=== PATIENT | male | born 1935 | race African-American/Black ===

== ENCOUNTER 2018-01-09 17:10 | Inpatient (IN) | payer MEDICARE, MEDICAID ==
[~2018-01-09] VITALS: Ht 188 cm; Wt 92.1 kg
[2018-01-09 17:10] VITALS: BP 131/58
[2018-01-09] MEDS ORDERED: DIPHENHYDRAMINE 12.5MG/5ML UDC PO PRN (18:15)
[2018-01-09] MEDS ORDERED: DEXTROSE 50% WATER 50ML SYRINGE IV PRN (18:15)
[2018-01-09] MEDS ORDERED: MAGNESIUM/ALUMINUM HYDROXIDE/SIMETHICONE 30ML UDC PO PRN (18:15)
[2018-01-09] MEDS ORDERED: ACETAMINOPHEN 325MG TABLET PO PRN (18:15)
[2018-01-09] MEDS ORDERED: CLONIDINE 0.1MG TABLET PO PRN (18:15)
[2018-01-09] MEDS ORDERED: ONDANSETRON HCL 4MG/2ML INJ IV PRN (18:15)
[2018-01-09] MEDS ORDERED: CHLORPROMAZINE HCL 25 MG TABLET PO PRN (18:15)
[2018-01-09] MEDS ORDERED: DIPHENHYDRAMINE 25MG CAPSULE PO PRN (18:30)
[2018-01-09 20:00] VITALS: BP 137/65
[2018-01-09] MEDS: FAMOTIDINE 20MG TABLET PO SCH (21:14)
[2018-01-09] MEDS: BLOOD SUGAR DIAGNOSTIC STRIP TEST SCH (21:14)
[2018-01-09] MEDS: INSULIN LISPRO 100 UNITS/ML SUBCUT SCH (22:35)
[2018-01-10] MEDS: MAGNESIUM HYDROXIDE 400MG/5ML 30ML UDC PO PRN (05:43)
[2018-01-10] MEDS: BLOOD SUGAR DIAGNOSTIC STRIP TEST SCH ×4 (05:45→20:27)
[2018-01-10] MEDS: INSULIN LISPRO 100 UNITS/ML SUBCUT SCH ×4 (06:45→20:27)
[2018-01-10] MEDS ORDERED: HYDROCODONE/ACETAMINOPHEN 10/325MG TABLET PO PRN (07:30)
[2018-01-10 08:00] VITALS: BP 137/72
[2018-01-10] MEDS: AMLODIPINE 2.5MG TABLET PO SCH (09:00)
[2018-01-10] MEDS: DOCUSATE SODIUM 100MG CAPSULE PO SCH ×2 (09:10→16:01)
[2018-01-10] MEDS: FERROUS SULFATE 325MG TABLET PO SCH ×3 (09:10→16:02)
[2018-01-10] MEDS: MAGNESIUM OXIDE 400MG TABLET PO SCH (09:10)
[2018-01-10] MEDS: DUTASTERIDE 0.5MG CAPSULE PO SCH (09:11)
[2018-01-10] MEDS: BENAZEPRIL 10MG TABLET PO SCH (09:11)
[2018-01-10] MEDS: ENOXAPARIN 100MG/ML SYR SUBCUT SCH (09:12)
[2018-01-10 09:21] LABS: BASOPHILS % 0.3 % (0.0-2.0); EOSINOPHILS % 1.1 % (0.0-5.0); HEMATOCRIT. 26.4 % (42.0-52.0); HEMOGLOBIN. 8.6 g/dL (14.0-18.0); LYMPHOCYTES % 8.7 % (20.0-50.0); MEAN CORPUSCULAR HEMOGLOBIN 29.6 pg (28.0-32.0); MEAN CORPUSCULAR VOLUME 90.7 fL (80.0-94.0); MEAN PLATELET VOLUME 11.8 fl (7.4-10.4); MONOCYTES % 12.3 % (2.0-8.0); NEUTROPHILS % 77.6 % (40.0-76.0); PLATELET 166 x1000/uL (130-400); RED BLOOD CELL COUNT 2.92 mill/uL (4.7-6.1); RED CELL DISTRIBUTION WIDTH 13.3 % (11.6-14.6)
[2018-01-10 09:41] LABS: CHLORIDE 105 mEq/L (98-107)
[2018-01-10] MEDS ORDERED: POTASSIUM CHLORIDE 20MEQ TABLET SR PO NR ×2 (14:45→15:00)
[2018-01-10 20:00] VITALS: BP 108/55
[2018-01-10] MEDS: FAMOTIDINE 20MG TABLET PO SCH (20:26)
[2018-01-11] MEDS: BLOOD SUGAR DIAGNOSTIC STRIP TEST SCH ×4 (05:40→20:38)
[2018-01-11] MEDS: INSULIN LISPRO 100 UNITS/ML SUBCUT SCH ×4 (06:38→20:38)
[2018-01-11 08:00] VITALS: BP 119/64
[2018-01-11] MEDS: BENAZEPRIL 10MG TABLET PO SCH (09:00)
[2018-01-11] MEDS: AMLODIPINE 2.5MG TABLET PO SCH (09:00)
[2018-01-11] MEDS: DOCUSATE SODIUM 100MG CAPSULE PO SCH ×2 (09:23→17:16)
[2018-01-11] MEDS: DUTASTERIDE 0.5MG CAPSULE PO SCH (09:23)
[2018-01-11] MEDS: FERROUS SULFATE 325MG TABLET PO SCH ×3 (09:23→17:16)
[2018-01-11] MEDS: MAGNESIUM OXIDE 400MG TABLET PO SCH (09:23)
[2018-01-11] MEDS: CELECOXIB 100MG CAPSULE PO SCH (09:23)
[2018-01-11 09:26] LABS: BASOPHILS % 0.3 % (0.0-2.0); EOSINOPHILS % 1.4 % (0.0-5.0); HEMATOCRIT. 23.6 % (42.0-52.0); HEMOGLOBIN. 7.8 g/dL (14.0-18.0); LYMPHOCYTES % 10.5 % (20.0-50.0); MEAN CORPUSCULAR HEMOGLOBIN 30.2 pg (28.0-32.0); MEAN CORPUSCULAR VOLUME 91.7 fL (80.0-94.0); MEAN PLATELET VOLUME 10.4 fl (7.4-10.4); MONOCYTES % 10.9 % (2.0-8.0); NEUTROPHILS % 76.9 % (40.0-76.0); PLATELET 157 x1000/uL (130-400); RED BLOOD CELL COUNT 2.57 mill/uL (4.7-6.1); RED CELL DISTRIBUTION WIDTH 13.3 % (11.6-14.6)
[2018-01-11] MEDS: ENOXAPARIN 100MG/ML SYR SUBCUT SCH (09:42)
[2018-01-11] MEDS ORDERED: LIDOCAINE 5% PATCH TOP SCH (09:45)
[2018-01-11] MEDS ORDERED: METHYL SALICYLATE/MENTHOL CREAM 85GM TOP SCH (11:00)
[2018-01-11] MEDS ORDERED: BACLOFEN 10MG TABLET PO SCH (14:00)
[2018-01-11 20:00] VITALS: BP 106/58
[2018-01-11] MEDS: FAMOTIDINE 20MG TABLET PO SCH (20:33)
[2018-01-12] MEDS: INSULIN LISPRO 100 UNITS/ML SUBCUT SCH ×4 (05:51→21:00)
[2018-01-12] MEDS: BLOOD SUGAR DIAGNOSTIC STRIP TEST SCH ×4 (05:51→21:00)
[2018-01-12 08:00] VITALS: BP 124/65
[2018-01-12] MEDS: AMLODIPINE 2.5MG TABLET PO SCH (09:00)
[2018-01-12] MEDS: BENAZEPRIL 10MG TABLET PO SCH (09:00)
[2018-01-12] MEDS: DUTASTERIDE 0.5MG CAPSULE PO SCH (09:01)
[2018-01-12] MEDS: CELECOXIB 100MG CAPSULE PO SCH (09:01)
[2018-01-12] MEDS: FERROUS SULFATE 325MG TABLET PO SCH ×3 (09:01→17:53)
[2018-01-12] MEDS: MAGNESIUM OXIDE 400MG TABLET PO SCH (09:01)
[2018-01-12] MEDS: DOCUSATE SODIUM 100MG CAPSULE PO SCH ×2 (09:01→17:00)
[2018-01-12] MEDS: ENOXAPARIN 100MG/ML SYR SUBCUT SCH (09:44)
[2018-01-12] MEDS: LIDOCAINE 5% PATCH TOP SCH (12:41)
[2018-01-12 20:00] VITALS: BP 115/60
[2018-01-12] MEDS: FAMOTIDINE 20MG TABLET PO SCH (22:25)
[2018-01-13] MEDS: BLOOD SUGAR DIAGNOSTIC STRIP TEST SCH ×4 (06:26→21:58)
[2018-01-13] MEDS: INSULIN LISPRO 100 UNITS/ML SUBCUT SCH ×4 (06:29→21:59)
[2018-01-13 06:49] LABS: BASOPHILS % 0.4 % (0.0-2.0); EOSINOPHILS % 0.7 % (0.0-5.0); HEMATOCRIT. 22.1 % (42.0-52.0); HEMOGLOBIN. 7.4 g/dL (14.0-18.0); LYMPHOCYTES % 15.9 % (20.0-50.0); MEAN CORPUSCULAR HEMOGLOBIN 30.3 pg (28.0-32.0); MEAN CORPUSCULAR VOLUME 90.6 fL (80.0-94.0); MEAN PLATELET VOLUME 10.4 fl (7.4-10.4); MONOCYTES % 10.4 % (2.0-8.0); NEUTROPHILS % 72.6 % (40.0-76.0); PLATELET 194 x1000/uL (130-400); RED BLOOD CELL COUNT 2.44 mill/uL (4.7-6.1); RED CELL DISTRIBUTION WIDTH 13.2 % (11.6-14.6)
[2018-01-13 07:00] LABS: PROSTRATE SPECIFIC AG TOTAL 0.31 ng/mL (0.0-4.0)
[2018-01-13 07:10] LABS: CHLORIDE 106 mEq/L (98-107)
[2018-01-13 07:19] LABS: PHOSPHORUS 1.9 mg/dL (2.5-4.9)
[2018-01-13 07:20] LABS: LDL CHOLESTEROL 91 mg/dL (5-100)
[2018-01-13 07:21] LABS: HDL CHOLESTEROL 22 mg/dL (40-59)
[2018-01-13 07:22] LABS: TOTAL IRON BINDING CAPACITY 139 ug/dL (250-450)
[2018-01-13 08:00] VITALS: BP 144/69
[2018-01-13] MEDS: HYDROCODONE/ACETAMINOPHEN 10/325MG TABLET PO PRN (09:18)
[2018-01-13] MEDS: LIDOCAINE 5% PATCH TOP SCH (09:18)
[2018-01-13] MEDS: MAGNESIUM OXIDE 400MG TABLET PO SCH (09:19)
[2018-01-13] MEDS: DOCUSATE SODIUM 100MG CAPSULE PO SCH ×2 (09:19→16:54)
[2018-01-13] MEDS: CELECOXIB 100MG CAPSULE PO SCH (09:19)
[2018-01-13] MEDS: BENAZEPRIL 10MG TABLET PO SCH (09:19)
[2018-01-13] MEDS: AMLODIPINE 2.5MG TABLET PO SCH (09:19)
[2018-01-13] MEDS: DUTASTERIDE 0.5MG CAPSULE PO SCH (09:19)
[2018-01-13] MEDS: FERROUS SULFATE 325MG TABLET PO SCH ×3 (09:19→16:54)
[2018-01-13] MEDS: ENOXAPARIN 100MG/ML SYR SUBCUT SCH (09:21)
[2018-01-13] MEDS ORDERED: METHYLPREDNISOLONE SOD SUCC 125 MG/2 ML VIAL IV NR (10:01)
[2018-01-13] MEDS ORDERED: POTASSIUM PHOS,M-BASIC-D-BASIC 20 MMOL in DEXT 5% WATER 243.3333 ML IV NR (11:00)
[2018-01-13 13:01] LABS: FOLIC ACID (FOLATE) SERUM 4.7 ng/mL (>5.38)
[2018-01-13] MEDS: LACTULOSE 20G/30ML UDC PO SCH ×2 (14:35→15:39)
[2018-01-13 20:00] VITALS: BP 132/75
[2018-01-13] MEDS: FAMOTIDINE 20MG TABLET PO SCH (21:58)
[2018-01-14] MEDS: BLOOD SUGAR DIAGNOSTIC STRIP TEST SCH ×4 (06:05→21:00)
[2018-01-14] MEDS: INSULIN LISPRO 100 UNITS/ML SUBCUT SCH ×4 (06:18→21:00)
[2018-01-14 06:53] LABS: BASOPHILS % 0.3 % (0.0-2.0); EOSINOPHILS % 0.1 % (0.0-5.0); HEMATOCRIT. 21.5 % (42.0-52.0); HEMOGLOBIN. 7.3 g/dL (14.0-18.0); LYMPHOCYTES % 9.7 % (20.0-50.0); MEAN CORPUSCULAR HEMOGLOBIN 30.6 pg (28.0-32.0); MEAN CORPUSCULAR VOLUME 90.7 fL (80.0-94.0); MEAN PLATELET VOLUME 9.3 fl (7.4-10.4); MONOCYTES % 9.1 % (2.0-8.0); NEUTROPHILS % 80.8 % (40.0-76.0); PLATELET 208 x1000/uL (130-400); RED BLOOD CELL COUNT 2.37 mill/uL (4.7-6.1); RED CELL DISTRIBUTION WIDTH 13.1 % (11.6-14.6)
[2018-01-14 08:00] VITALS: BP 135/65
[2018-01-14] MEDS: LIDOCAINE 5% PATCH TOP SCH (09:13)
[2018-01-14] MEDS: ENOXAPARIN 100MG/ML SYR SUBCUT SCH (09:17)
[2018-01-14] MEDS: CELECOXIB 100MG CAPSULE PO SCH (09:18)
[2018-01-14] MEDS: FOLIC ACID 1MG TABLET PO SCH (09:22)
[2018-01-14] MEDS: MAGNESIUM OXIDE 400MG TABLET PO SCH (09:22)
[2018-01-14] MEDS: BENAZEPRIL 10MG TABLET PO SCH (09:22)
[2018-01-14] MEDS: DUTASTERIDE 0.5MG CAPSULE PO SCH (09:22)
[2018-01-14] MEDS: FERROUS SULFATE 325MG TABLET PO SCH ×3 (09:22→17:46)
[2018-01-14] MEDS: DOCUSATE SODIUM 100MG CAPSULE PO SCH ×2 (09:22→17:46)
[2018-01-14] MEDS: AMLODIPINE 2.5MG TABLET PO SCH (09:23)
[2018-01-14] MEDS: HYDROCODONE/ACETAMINOPHEN 10/325MG TABLET PO PRN (11:02)
[2018-01-14] MEDS: TERBINAFINE HCL 1% CREAM 30GM TOP SCH (17:47)
[2018-01-14 20:00] VITALS: BP 107/61
[2018-01-14] MEDS: PANTOPRAZOLE SODIUM 40 MG/VIAL IV SCH (22:03)
[2018-01-15] VITALS (8 sets, daily range): BP systolic 116–138; BP diastolic 61–70
[2018-01-15] MEDS ORDERED: DIPHENHYDRAMINE 50MG CAPSULE PO NR (02:00)
[2018-01-15] MEDS ORDERED: ACETAMINOPHEN 500MG TABLET PO NR (02:00)
[2018-01-15] MEDS: BLOOD SUGAR DIAGNOSTIC STRIP TEST SCH ×4 (06:30→21:00)
[2018-01-15] MEDS: INSULIN LISPRO 100 UNITS/ML SUBCUT SCH ×4 (07:34→21:00)
[2018-01-15] MEDS: PANTOPRAZOLE SODIUM 40 MG/VIAL IV SCH ×2 (09:00→22:29)
[2018-01-15] MEDS: AMLODIPINE 2.5MG TABLET PO SCH (09:00)
[2018-01-15] MEDS: DOCUSATE SODIUM 100MG CAPSULE PO SCH ×2 (09:00→17:52)
[2018-01-15] MEDS: MAGNESIUM OXIDE 400MG TABLET PO SCH (09:00)
[2018-01-15] MEDS: FERROUS SULFATE 325MG TABLET PO SCH ×3 (09:00→17:52)
[2018-01-15] MEDS: DUTASTERIDE 0.5MG CAPSULE PO SCH (09:00)
[2018-01-15] MEDS: BENAZEPRIL 10MG TABLET PO SCH (09:00)
[2018-01-15] MEDS: FOLIC ACID 1MG TABLET PO SCH (09:00)
[2018-01-15] MEDS: CELECOXIB 100MG CAPSULE PO SCH (09:00)
[2018-01-15 09:55] LABS: BASOPHILS % 0.2 % (0.0-2.0); EOSINOPHILS % 0.7 % (0.0-5.0); HEMATOCRIT. 24.7 % (42.0-52.0); HEMOGLOBIN. 8.3 g/dL (14.0-18.0); LYMPHOCYTES % 17.4 % (20.0-50.0); MEAN CORPUSCULAR HEMOGLOBIN 29.9 pg (28.0-32.0); MEAN CORPUSCULAR VOLUME 89.4 fL (80.0-94.0); MEAN PLATELET VOLUME 8.5 fl (7.4-10.4); MONOCYTES % 8.5 % (2.0-8.0); NEUTROPHILS % 73.2 % (40.0-76.0); PLATELET 217 x1000/uL (130-400); RED BLOOD CELL COUNT 2.77 mill/uL (4.7-6.1); RED CELL DISTRIBUTION WIDTH 14.2 % (11.6-14.6)
[2018-01-15 10:17] LABS: CHLORIDE 106 mEq/L (98-107)
[2018-01-15] MEDS: TERBINAFINE HCL 1% CREAM 30GM TOP SCH ×2 (10:23→17:53)
[2018-01-15] MEDS: LIDOCAINE 5% PATCH TOP SCH (10:23)
[2018-01-15 11:30] LABS: PHOSPHORUS 2.4 mg/dL (2.5-4.9)
[2018-01-15] MEDS ORDERED: POTASSIUM-SODIUM PHOSPHATE POWDER PACKET PO NR (14:00)
[2018-01-15] MEDS ORDERED: PANTOPRAZOLE SODIUM 40 MG/VIAL IV SCH (21:00)
[2018-01-16] MEDS: BLOOD SUGAR DIAGNOSTIC STRIP TEST SCH ×4 (06:30→21:00)
[2018-01-16 07:00] VITALS: BP 156/72
[2018-01-16 07:23] LABS: BASOPHILS % 0.6 % (0.0-2.0); EOSINOPHILS % 0.6 % (0.0-5.0); HEMATOCRIT. 25.6 % (42.0-52.0); HEMOGLOBIN. 8.8 g/dL (14.0-18.0); LYMPHOCYTES % 12.8 % (20.0-50.0); MEAN CORPUSCULAR HEMOGLOBIN 30.2 pg (28.0-32.0); MEAN CORPUSCULAR VOLUME 88.3 fL (80.0-94.0); MEAN PLATELET VOLUME 8.9 fl (7.4-10.4); MONOCYTES % 7.3 % (2.0-8.0); NEUTROPHILS % 78.7 % (40.0-76.0); PLATELET 241 x1000/uL (130-400); RED CELL DISTRIBUTION WIDTH 13.9 % (11.6-14.6)
[2018-01-16] MEDS: INSULIN LISPRO 100 UNITS/ML SUBCUT SCH ×4 (07:45→21:00)
[2018-01-16] MEDS: AMLODIPINE 2.5MG TABLET PO SCH (08:16)
[2018-01-16] MEDS: BENAZEPRIL 10MG TABLET PO SCH (08:16)
[2018-01-16] MEDS: LIDOCAINE 5% PATCH TOP SCH (08:17)
[2018-01-16] MEDS: TERBINAFINE HCL 1% CREAM 30GM TOP SCH ×2 (10:37→17:10)
[2018-01-16 12:40] VITALS: BP 149/77
[2018-01-16] MEDS: FERROUS SULFATE 325MG TABLET PO SCH ×2 (13:00→17:10)
[2018-01-16] MEDS ORDERED: MIDAZOLAM HCL 5 MG/5 ML VIAL ONE (13:10)
[2018-01-16] MEDS ORDERED: SIMETHICONE 40 MG/0.6 ML 30ML ONE ×2 (13:10→15:11)
[2018-01-16] MEDS ORDERED: FENTANYL CITRATE/PF 50MCG/ML 2ML VIAL ONE (13:10)
[2018-01-16] MEDS ORDERED: MIDAZOLAM HCL 5 MG/5 ML VIAL IV PRN (13:24)
[2018-01-16] MEDS ORDERED: FENTANYL CITRATE/PF 50MCG/ML 2ML VIAL IV PRN (13:25)
[2018-01-16] MEDS ORDERED: BACTERIOSTATIC SODIUM CHLORIDE 0.9% 30ML VIAL IJ ONE (15:11)
[2018-01-16] MEDS: CELECOXIB 100MG CAPSULE PO SCH (16:02)
[2018-01-16] MEDS: FOLIC ACID 1MG TABLET PO SCH (16:02)
[2018-01-16] MEDS: DOCUSATE SODIUM 100MG CAPSULE PO SCH (16:02)
[2018-01-16] MEDS: DUTASTERIDE 0.5MG CAPSULE PO SCH (16:03)
[2018-01-16] MEDS: MAGNESIUM OXIDE 400MG TABLET PO SCH (16:04)
[2018-01-16 20:00] VITALS: BP 137/68
[2018-01-17] MEDS: BLOOD SUGAR DIAGNOSTIC STRIP TEST SCH ×4 (06:28→20:49)
[2018-01-17] MEDS: INSULIN LISPRO 100 UNITS/ML SUBCUT SCH ×4 (06:39→20:49)
[2018-01-17 08:00] VITALS: BP 124/67
[2018-01-17] MEDS: LIDOCAINE 5% PATCH TOP SCH (09:00)
[2018-01-17] MEDS: ENOXAPARIN 100MG/ML SYR SUBCUT SCH (09:21)
[2018-01-17] MEDS: DOCUSATE SODIUM 100MG CAPSULE PO SCH ×2 (09:22→17:01)
[2018-01-17] MEDS: MAGNESIUM OXIDE 400MG TABLET PO SCH (09:22)
[2018-01-17] MEDS: FERROUS SULFATE 325MG TABLET PO SCH ×3 (09:22→17:01)
[2018-01-17] MEDS: FOLIC ACID 1MG TABLET PO SCH (09:22)
[2018-01-17] MEDS: BENAZEPRIL 10MG TABLET PO SCH (09:22)
[2018-01-17] MEDS: CELECOXIB 100MG CAPSULE PO SCH (09:22)
[2018-01-17] MEDS: DUTASTERIDE 0.5MG CAPSULE PO SCH (09:22)
[2018-01-17] MEDS: AMLODIPINE 2.5MG TABLET PO SCH (09:22)
[2018-01-17] MEDS: TERBINAFINE HCL 1% CREAM 30GM TOP SCH ×2 (09:27→17:02)
[2018-01-17] MEDS: GUAIFENESIN 600MG ER TABLET PO SCH ×2 (11:12→20:45)
[2018-01-17 20:00] VITALS: BP 145/70
[2018-01-18] MEDS: BLOOD SUGAR DIAGNOSTIC STRIP TEST SCH ×4 (06:23→21:46)
[2018-01-18] MEDS: INSULIN LISPRO 100 UNITS/ML SUBCUT SCH ×4 (06:23→21:00)
[2018-01-18 07:10] LABS: BASOPHILS % 0.2 % (0.0-2.0); EOSINOPHILS % 0.5 % (0.0-5.0); HEMATOCRIT. 25.9 % (42.0-52.0); HEMOGLOBIN. 8.8 g/dL (14.0-18.0); LYMPHOCYTES % 9.7 % (20.0-50.0); MEAN CORPUSCULAR HEMOGLOBIN 30.3 pg (28.0-32.0); MEAN CORPUSCULAR VOLUME 89.4 fL (80.0-94.0); MEAN PLATELET VOLUME 9.2 fl (7.4-10.4); MONOCYTES % 6.5 % (2.0-8.0); NEUTROPHILS % 83.1 % (40.0-76.0); PLATELET 261 x1000/uL (130-400); RED CELL DISTRIBUTION WIDTH 14.1 % (11.6-14.6)
[2018-01-18 08:00] VITALS: BP 160/72
[2018-01-18] MEDS: LIDOCAINE 5% PATCH TOP SCH (09:00)
[2018-01-18] MEDS: DOCUSATE SODIUM 100MG CAPSULE PO SCH ×2 (09:42→16:43)
[2018-01-18] MEDS: TERBINAFINE HCL 1% CREAM 30GM TOP SCH ×2 (09:42→18:25)
[2018-01-18] MEDS: CELECOXIB 100MG CAPSULE PO SCH (09:42)
[2018-01-18] MEDS: FERROUS SULFATE 325MG TABLET PO SCH ×3 (09:42→16:43)
[2018-01-18] MEDS: MAGNESIUM OXIDE 400MG TABLET PO SCH (09:43)
[2018-01-18] MEDS: DUTASTERIDE 0.5MG CAPSULE PO SCH (09:43)
[2018-01-18] MEDS: BENAZEPRIL 10MG TABLET PO SCH (09:43)
[2018-01-18] MEDS: AMLODIPINE 2.5MG TABLET PO SCH (09:43)
[2018-01-18] MEDS: FOLIC ACID 1MG TABLET PO SCH (09:43)
[2018-01-18] MEDS: ENOXAPARIN 100MG/ML SYR SUBCUT SCH ×2 (09:43→21:50)
[2018-01-18] MEDS: GUAIFENESIN 600MG ER TABLET PO SCH ×2 (09:43→21:48)
[2018-01-18 14:18] LABS: 25-HYDROXY VITAMIN D3 13 ng/mL (.)
[2018-01-18 15:22] LABS: CLARITY URINE CLEAR (CLEAR); COLOR URINE YELLOW (YELLOW); KETONES URINE NEGATIVE (NEGATIVE); LEUKOCYTE ESTERASE URINE NEGATIVE (NEGATIVE); NITRITE URINE NEGATIVE (NEGATIVE); OCCULT BLOOD URINE NEGATIVE (NEGATIVE); PH URINE 5.5 (4.5-8.0); PROTEIN URINE 1+ (NEGATIVE); SPECIFIC GRAVITY URINE 1.017 (1.005-1.030); UROBILINOGEN URINE 0.2 E.U./dL (0.2-1.0)
[2018-01-18 20:00] VITALS: BP 122/61
[2018-01-19] MEDS: BLOOD SUGAR DIAGNOSTIC STRIP TEST SCH ×4 (06:01→21:58)
[2018-01-19] MEDS: INSULIN LISPRO 100 UNITS/ML SUBCUT SCH ×4 (06:01→21:59)
[2018-01-19 08:00] VITALS: BP 116/66
[2018-01-19] MEDS: LIDOCAINE 5% PATCH TOP SCH (09:00)
[2018-01-19] MEDS: TERBINAFINE HCL 1% CREAM 30GM TOP SCH ×2 (09:22→17:03)
[2018-01-19] MEDS: ENOXAPARIN 100MG/ML SYR SUBCUT SCH ×2 (09:22→21:57)
[2018-01-19] MEDS: FOLIC ACID 1MG TABLET PO SCH (09:23)
[2018-01-19] MEDS: MAGNESIUM OXIDE 400MG TABLET PO SCH (09:23)
[2018-01-19] MEDS: BENAZEPRIL 10MG TABLET PO SCH (09:23)
[2018-01-19] MEDS: FERROUS SULFATE 325MG TABLET PO SCH ×3 (09:23→17:03)
[2018-01-19] MEDS: GUAIFENESIN 600MG ER TABLET PO SCH ×2 (09:23→21:57)
[2018-01-19] MEDS: CELECOXIB 100MG CAPSULE PO SCH (09:23)
[2018-01-19] MEDS: DUTASTERIDE 0.5MG CAPSULE PO SCH (09:23)
[2018-01-19] MEDS: DOCUSATE SODIUM 100MG CAPSULE PO SCH ×3 (09:24→17:03)
[2018-01-19] MEDS: AMLODIPINE 2.5MG TABLET PO SCH (09:24)
[2018-01-19 10:10] LABS: BASOPHILS % 0.3 % (0.0-2.0); EOSINOPHILS % 0.8 % (0.0-5.0); HEMOGLOBIN. 8.4 g/dL (14.0-18.0); LYMPHOCYTES % 11.6 % (20.0-50.0); MEAN CORPUSCULAR HEMOGLOBIN 30.4 pg (28.0-32.0); MEAN CORPUSCULAR VOLUME 90.4 fL (80.0-94.0); MEAN PLATELET VOLUME 8.9 fl (7.4-10.4); NEUTROPHILS % 79.3 % (40.0-76.0); PLATELET 237 x1000/uL (130-400); RED BLOOD CELL COUNT 2.77 mill/uL (4.7-6.1); RED CELL DISTRIBUTION WIDTH 14.1 % (11.6-14.6)
[2018-01-19] MEDS ORDERED: ERGOCALCIFEROL 50000UNITS CAPSULE PO SCH (12:00)
[2018-01-19 20:00] VITALS: BP 120/66
[2018-01-19] MEDS: GUAIFENESIN 200MG/10ML SUGAR FREE UDC PO PRN (21:57)
[2018-01-20 03:35] VITALS: BP 114/66
[2018-01-20] MEDS: BLOOD SUGAR DIAGNOSTIC STRIP TEST SCH ×4 (05:58→21:53)
[2018-01-20] MEDS: INSULIN LISPRO 100 UNITS/ML SUBCUT SCH ×4 (05:59→21:54)
[2018-01-20] MEDS: GUAIFENESIN 200MG/10ML SUGAR FREE UDC PO PRN (06:40)
[2018-01-20 07:26] LABS: BASOPHILS % 0.4 % (0.0-2.0); EOSINOPHILS % 0.7 % (0.0-5.0); HEMATOCRIT. 24.2 % (42.0-52.0); HEMOGLOBIN. 8.4 g/dL (14.0-18.0); LYMPHOCYTES % 15.5 % (20.0-50.0); MEAN CORPUSCULAR HEMOGLOBIN 30.7 pg (28.0-32.0); MEAN CORPUSCULAR VOLUME 89.1 fL (80.0-94.0); MEAN PLATELET VOLUME 9.5 fl (7.4-10.4); MONOCYTES % 8.8 % (2.0-8.0); NEUTROPHILS % 74.6 % (40.0-76.0); PLATELET 237 x1000/uL (130-400); RED BLOOD CELL COUNT 2.72 mill/uL (4.7-6.1); RED CELL DISTRIBUTION WIDTH 14.2 % (11.6-14.6)
[2018-01-20 08:00] VITALS: BP 128/70
[2018-01-20] MEDS: FERROUS SULFATE 325MG TABLET PO SCH ×3 (09:35→16:58)
[2018-01-20] MEDS: AMLODIPINE 2.5MG TABLET PO SCH (09:35)
[2018-01-20] MEDS: MAGNESIUM OXIDE 400MG TABLET PO SCH (09:35)
[2018-01-20] MEDS: BENAZEPRIL 10MG TABLET PO SCH (09:35)
[2018-01-20] MEDS: DUTASTERIDE 0.5MG CAPSULE PO SCH (09:35)
[2018-01-20] MEDS: CELECOXIB 100MG CAPSULE PO SCH (09:36)
[2018-01-20] MEDS: FOLIC ACID 1MG TABLET PO SCH (09:36)
[2018-01-20] MEDS: GUAIFENESIN 600MG ER TABLET PO SCH ×2 (09:36→21:53)
[2018-01-20] MEDS: LIDOCAINE 5% PATCH TOP SCH (09:37)
[2018-01-20] MEDS: GUAIFENESIN-DM 200MG-20MG/10ML UDC PO PRN (11:05)
[2018-01-20] MEDS: DOCUSATE SODIUM 100MG CAPSULE PO SCH ×2 (11:44→16:58)
[2018-01-20] MEDS: TERBINAFINE HCL 1% CREAM 30GM TOP SCH ×2 (11:45→16:57)
[2018-01-20] MEDS: ENOXAPARIN 100MG/ML SYR SUBCUT SCH ×2 (11:45→21:54)
[2018-01-20 19:36] VITALS: BP 122/67
[2018-01-21] MEDS: GUAIFENESIN-DM 200MG-20MG/10ML UDC PO PRN (04:07)
[2018-01-21] MEDS: INSULIN LISPRO 100 UNITS/ML SUBCUT SCH ×2 (06:39→11:56)
[2018-01-21] MEDS: BLOOD SUGAR DIAGNOSTIC STRIP TEST SCH ×2 (06:39→11:55)
[2018-01-21] MEDS: GUAIFENESIN 600MG ER TABLET PO SCH (08:40)
[2018-01-21] MEDS: BENAZEPRIL 10MG TABLET PO SCH (08:40)
[2018-01-21] MEDS: FOLIC ACID 1MG TABLET PO SCH (08:40)
[2018-01-21] MEDS: DOCUSATE SODIUM 100MG CAPSULE PO SCH (08:40)
[2018-01-21] MEDS: CELECOXIB 100MG CAPSULE PO SCH (08:40)
[2018-01-21] MEDS: MAGNESIUM OXIDE 400MG TABLET PO SCH (08:40)
[2018-01-21] MEDS: DUTASTERIDE 0.5MG CAPSULE PO SCH (08:40)
[2018-01-21] MEDS: FERROUS SULFATE 325MG TABLET PO SCH ×2 (08:40→12:20)
[2018-01-21] MEDS: AMLODIPINE 2.5MG TABLET PO SCH (08:40)
[2018-01-21] MEDS: MAGNESIUM HYDROXIDE 400MG/5ML 30ML UDC PO PRN (08:41)
[2018-01-21] MEDS: LIDOCAINE 5% PATCH TOP SCH (08:41)
[2018-01-21] MEDS: ENOXAPARIN 100MG/ML SYR SUBCUT SCH (08:41)
[2018-01-21] MEDS: TERBINAFINE HCL 1% CREAM 30GM TOP SCH (08:46)
[2018-01-21] MEDS ORDERED: MORPHINE SULFATE 4 MG/ML CPJ (NOT FOR IM USE) IV SCH (11:45)
[2018-01-21] MEDS: NITROGLYCERIN 0.4MG TABLET SL SL SCH ×2 (11:54→12:11)
[2018-01-21 16:13] LABS: BASOPHILS % 0.3 % (0.0-2.0); EOSINOPHILS % 0.7 % (0.0-5.0); HEMATOCRIT. 22.4 % (42.0-52.0); HEMOGLOBIN. 7.5 g/dL (14.0-18.0); LYMPHOCYTES % 13.2 % (20.0-50.0); MEAN CORPUSCULAR HEMOGLOBIN 30.3 pg (28.0-32.0); MEAN CORPUSCULAR VOLUME 90.1 fL (80.0-94.0); MEAN PLATELET VOLUME 8.3 fl (7.4-10.4); NEUTROPHILS % 75.8 % (40.0-76.0); PLATELET 210 x1000/uL (130-400); RED BLOOD CELL COUNT 2.49 mill/uL (4.7-6.1); RED CELL DISTRIBUTION WIDTH 13.9 % (11.6-14.6)
[2018-01-21 16:14] VITALS: BP 130/70
[2018-01-21] MEDS ORDERED: BUPIVACAINE HCL 0.5% (5MG/ML) 50ML IR ONE (16:30)
[2018-01-21] MEDS ORDERED: TRIAMCINOLONE ACETONIDE 40MG/ML 1ML VIAL IM NR (17:00)
[2018-01-21] MEDS ORDERED: LIDOCAINE HCL/PF 2% 20 MG/ML 10ML VIAL IJ NR (17:00)
[2018-01-21] MEDS ORDERED: BUPIVACAINE HCL/PF 0.5% (5MG/ML) 10ML INFIL ONE (17:15)
[2018-01-21] MEDS ORDERED: DEXAMETHASONE 4MG/ML 1ML VIAL IV NR (17:30)
[2018-01-21] MEDS ORDERED: BUPIVACAINE HCL 0.5% (5MG/ML) 50ML INFIL NR (18:00)
[2018-01-21] MEDS ORDERED: BUPIVACAINE HCL/PF 0.5% (5MG/ML) 10ML INFIL NR (18:02)
== END 2018-01-21 17:17 | disposition short-term general hospital (02) | DRG 535 ==
PROVIDERS: ADMIT Physical Medicine & Rehabilitation Spinal Cord Injury Medicine; ATTEND Internal Medicine
PROC: 30233N1 Transfusion of Nonautologous Red Blood Cells into Peripheral Vein, Percutaneous Approach (ICD-10-PCS; principal; 2018-01-15)
PROC: 0DB98ZX Excision of Duodenum, Via Natural or Artificial Opening Endoscopic, Diagnostic (ICD-10-PCS; 2018-01-16)
DX: S72.011A Unspecified intracapsular fracture of right femur, initial encounter for closed fracture (principal); I26.99 Other pulmonary embolism without acute cor pulmonale; I82.411 Acute embolism and thrombosis of right femoral vein; N17.9 Acute kidney failure, unspecified; N39.0 Urinary tract infection, site not specified; W18.39XA Other fall on same level, initial encounter; E11.22 Type 2 diabetes mellitus with diabetic chronic kidney disease; D69.6 Thrombocytopenia, unspecified; D72.829 Elevated white blood cell count, unspecified; E78.00 Pure hypercholesterolemia, unspecified; E78.5 Hyperlipidemia, unspecified; E87.6 Hypokalemia; M19.90 Unspecified osteoarthritis, unspecified site; Z96.641 Presence of right artificial hip joint; I13.10 Hypertensive heart and chronic kidney disease without heart failure, with stage 1 through stage 4 chronic kidney disease, or unspecified chronic kidney disease; D63.8 Anemia in other chronic diseases classified elsewhere; M79.672 Pain in left foot; E11.51 Type 2 diabetes mellitus with diabetic peripheral angiopathy without gangrene; L60.3 Nail dystrophy; N18.3 Chronic kidney disease, stage 3 (moderate); E55.9 Vitamin D deficiency, unspecified; L89.629 Pressure ulcer of left heel, unspecified stage; R50.9 Fever, unspecified; R26.9 Unspecified abnormalities of gait and mobility; D52.9 Folate deficiency anemia, unspecified; R53.81 Other malaise; R07.9 Chest pain, unspecified; F32.9 Major depressive disorder, single episode, unspecified; Z96.651 Presence of right artificial knee joint; R91.1 Solitary pulmonary nodule; Z85.46 Personal history of malignant neoplasm of prostate; Z86.73 Personal history of transient ischemic attack (TIA), and cerebral infarction without residual deficits; Y93.89 Activity, other specified; Y92.89 Other specified places as the place of occurrence of the external cause; Y99.8 Other external cause status; Z79.899 Other long term (current) drug therapy; Z79.4 Long term (current) use of insulin; Z91.81 History of falling
CPT/HCPCS: 36415; 71045; 71046; 71250; 73600; 73620; 80048; 80053; 80061; 81003; 82270; 82306; 82378; 82607; 82728; 82746; 82962; 83036; 83540; 83550; 83605; 83735; 84100; 84134; 84145; 84153; 84443; 84484; 84630; 85025; 85379; 86850; 86900; 86920; 87040; 87086; 88305; 92523; 93005; 93923; 93970; 97110; 97112; 97116; 97162; 97166; 97530; 97535; C9113; G0515; J1100; J1650; J1815; J2250; J2270; J2930; J3010; J3301; J3490; J7050; J7060; P9016; Q0163; G0103

== ENCOUNTER 2018-01-21 17:40 | Inpatient (IN) | payer MEDICARE, MEDICAID ==
[~2018-01-21] VITALS: Ht 188 cm; Wt 80.7 kg
[2018-01-21 20:00] VITALS: BP 136/71
[2018-01-21] MEDS ORDERED: HYDROCODONE/ACETAMINOPHEN 5/325MG TABLET PO PRN (22:15)
[2018-01-21] MEDS ORDERED: MAGNESIUM HYDROXIDE 400MG/5ML 30ML UDC PO PRN (22:30)
[2018-01-21] MEDS ORDERED: CLONIDINE 0.1MG TABLET PO PRN (22:30)
[2018-01-21] MEDS ORDERED: MAGNESIUM/ALUMINUM HYDROXIDE/SIMETHICONE 30ML UDC PO PRN (22:30)
[2018-01-21] MEDS ORDERED: ONDANSETRON HCL 4MG/2ML INJ IV PRN (22:30)
[2018-01-21] MEDS ORDERED: DIPHENHYDRAMINE 50MG/ML VIAL IV PRN (22:30)
[2018-01-21] MEDS ORDERED: CHLORPROMAZINE HCL 25 MG TABLET PO PRN (22:45)
[2018-01-21] MEDS: GUAIFENESIN 200MG/10ML SUGAR FREE UDC PO PRN (23:17)
[2018-01-21] MEDS: ENOXAPARIN 100MG/ML SYR SUBCUT SCH (23:18)
[2018-01-22] VITALS: BP 125/60
[2018-01-22 04:00] VITALS: BP 104/57
[2018-01-22 07:39] LABS: BASOPHILS % 0.3 % (0.0-2.0); EOSINOPHILS % 0.3 % (0.0-5.0); HEMOGLOBIN. 7.2 g/dL (14.0-18.0); LYMPHOCYTES % 12.8 % (20.0-50.0); MEAN CORPUSCULAR HEMOGLOBIN 29.9 pg (28.0-32.0); MEAN CORPUSCULAR VOLUME 91.1 fL (80.0-94.0); MEAN PLATELET VOLUME 9.4 fl (7.4-10.4); MONOCYTES % 10.5 % (2.0-8.0); NEUTROPHILS % 76.1 % (40.0-76.0); PLATELET 221 x1000/uL (130-400); RED BLOOD CELL COUNT 2.42 mill/uL (4.7-6.1); RED CELL DISTRIBUTION WIDTH 14.2 % (11.6-14.6)
[2018-01-22] MEDS: FERROUS SULFATE 325MG TABLET PO SCH ×3 (07:58→18:01)
[2018-01-22 08:00] VITALS: BP 112/61
[2018-01-22 08:05] LABS: CHLORIDE 104 mEq/L (98-107)
[2018-01-22] MEDS ORDERED: PANTOPRAZOLE SODIUM 40 MG/VIAL IV SCH (09:00)
[2018-01-22] MEDS: DUTASTERIDE 0.5MG CAPSULE PO SCH (09:23)
[2018-01-22] MEDS: CELECOXIB 200MG CAPSULE PO SCH (09:24)
[2018-01-22] MEDS: GUAIFENESIN 600MG ER TABLET PO SCH ×2 (09:24→21:47)
[2018-01-22] MEDS: MAGNESIUM OXIDE 400MG TABLET PO SCH (09:25)
[2018-01-22] MEDS: FOLIC ACID 1MG TABLET PO SCH (09:26)
[2018-01-22] MEDS: AMLODIPINE 2.5MG TABLET PO SCH (09:26)
[2018-01-22] MEDS: DOCUSATE SODIUM 100MG CAPSULE PO SCH ×2 (09:26→18:00)
[2018-01-22] MEDS: BENAZEPRIL 10MG TABLET PO SCH (09:27)
[2018-01-22] MEDS: ENOXAPARIN 100MG/ML SYR SUBCUT SCH (09:30)
[2018-01-22] MEDS: TERBINAFINE HCL 1% CREAM 30GM TOP SCH ×2 (09:37→18:01)
[2018-01-22] MEDS: LIDOCAINE 5% PATCH TOP SCH (09:39)
[2018-01-22 12:00] VITALS: BP 97/55
[2018-01-22] MEDS: GUAIFENESIN 200MG/10ML SUGAR FREE UDC PO PRN (12:24)
[2018-01-22 13:14] LABS: BG BASE EXCESS -5.5 mmol/L (-2.0-2.0); BG CARBOXYHEMOGLOBIN 0.4 % (0.5-1.5); BG DEOXYHEMOGLOBIN 5.9 % (0.0-5.0); BG FRACTION INSPIRED OXYGEN 28; BG HCO3 ACT 18.3 mmol/L (22.0-26.0); BG METHEMOGLOBIN 0.2 % (0.0-1.5); BG OXYGEN SATURATION 94.1 % (92.0-98.5); BG OXYHEMOGLOBIN 93.5 % (94.0-97.0); BG PH 7.419 (7.350-7.450); BG SAMPLE SITE RIGHT RADIAL; BG TOTAL HEMOGLOBIN 6.9 g/dL (12.0-18.0); BG VENT MODE NASAL CANNULA
[2018-01-22 16:00] VITALS: BP 96/45
[2018-01-22] MEDS ORDERED: LORAZEPAM 0.5MG TABLET PO PRN (16:45)
[2018-01-22 20:00] VITALS: BP 98/55
[2018-01-22] MEDS: ZOLPIDEM TARTRATE 5MG TABLET PO PRN (21:47)
[2018-01-23] VITALS (14 sets, daily range): BP systolic 74–112; BP diastolic 40–56
[2018-01-23] MEDS: AMLODIPINE 2.5MG TABLET PO SCH (09:00)
[2018-01-23] MEDS ORDERED: ENOXAPARIN 100MG/ML SYR SUBCUT SCH (09:00)
[2018-01-23] MEDS: BENAZEPRIL 10MG TABLET PO SCH (09:00)
[2018-01-23] MEDS ORDERED: ENOXAPARIN 30MG/0.3ML SYR SUBCUT SCH (09:00)
[2018-01-23] MEDS: DOCUSATE SODIUM 100MG CAPSULE PO SCH ×2 (10:17→17:55)
[2018-01-23] MEDS: FERROUS SULFATE 325MG TABLET PO SCH ×3 (10:17→17:56)
[2018-01-23] MEDS: CELECOXIB 200MG CAPSULE PO SCH (10:17)
[2018-01-23] MEDS: DUTASTERIDE 0.5MG CAPSULE PO SCH (10:17)
[2018-01-23] MEDS: GUAIFENESIN 600MG ER TABLET PO SCH (10:17)
[2018-01-23] MEDS: MAGNESIUM OXIDE 400MG TABLET PO SCH (10:17)
[2018-01-23] MEDS: FOLIC ACID 1MG TABLET PO SCH (10:17)
[2018-01-23] MEDS: LIDOCAINE 5% PATCH TOP SCH (10:19)
[2018-01-23] MEDS: TERBINAFINE HCL 1% CREAM 30GM TOP SCH ×2 (10:25→17:57)
[2018-01-23] MEDS ORDERED: SODIUM CHLORIDE 0.9% 500 ML IV SCH (13:00)
[2018-01-23] MEDS: PANTOPRAZOLE SODIUM 40 MG/VIAL IV SCH (20:38)
[2018-01-23] MEDS ORDERED: DEXTROSE 50% WATER 50ML SYRINGE IV PRN (21:45)
[2018-01-24] VITALS (30 sets, daily range): BP systolic 93–155; BP diastolic 50–89
[2018-01-24] MEDS: BLOOD SUGAR DIAGNOSTIC STRIP TEST SCH ×4 (05:57→20:48)
[2018-01-24] MEDS: PANTOPRAZOLE SODIUM 40 MG/VIAL IV SCH ×2 (05:59→17:00)
[2018-01-24 06:49] LABS: BASOPHILS % 0.2 % (0.0-2.0); EOSINOPHILS % 0.2 % (0.0-5.0); LYMPHOCYTES % 9.7 % (20.0-50.0); MEAN CORPUSCULAR HEMOGLOBIN 30.5 pg (28.0-32.0); MEAN CORPUSCULAR VOLUME 87.4 fL (80.0-94.0); MEAN PLATELET VOLUME 9.1 fl (7.4-10.4); MONOCYTES % 11.9 % (2.0-8.0); PLATELET 184 x1000/uL (130-400); RED BLOOD CELL COUNT 2.31 mill/uL (4.7-6.1)
[2018-01-24 07:09] LABS: INR 1.1; PARTIAL THROMBOPLASTIN TIME 27.7 sec (23.4-31.0); PROTHROMBIN TIME 10.7 sec (9.1-11.1)
[2018-01-24] MEDS: FERROUS SULFATE 325MG TABLET PO SCH ×3 (07:20→16:52)
[2018-01-24] MEDS: INSULIN LISPRO 100 UNITS/ML SUBCUT SCH ×4 (07:20→20:48)
[2018-01-24 07:47] LABS: HEMATOCRIT. 20.2 % (42.0-52.0)
[2018-01-24] MEDS: DUTASTERIDE 0.5MG CAPSULE PO SCH (08:05)
[2018-01-24] MEDS: FOLIC ACID 1MG TABLET PO SCH (08:06)
[2018-01-24] MEDS: MAGNESIUM OXIDE 400MG TABLET PO SCH (08:06)
[2018-01-24] MEDS: SODIUM CHLORIDE 0.9% 1,000 ML IV SCH (08:28)
[2018-01-24] MEDS: LIDOCAINE 5% PATCH TOP SCH (09:00)
[2018-01-24] MEDS: TERBINAFINE HCL 1% CREAM 30GM TOP SCH ×2 (09:15→16:53)
[2018-01-24] MEDS ORDERED: MIDAZOLAM HCL 5 MG/5 ML VIAL ONE (12:05)
[2018-01-24] MEDS ORDERED: FENTANYL CITRATE/PF 50MCG/ML 2ML VIAL ONE (12:06)
[2018-01-24] MEDS ORDERED: SIMETHICONE 40 MG/0.6 ML 30ML ONE (12:22)
[2018-01-24] MEDS ORDERED: MIDAZOLAM HCL 5 MG/5 ML VIAL IV PRN (12:53)
[2018-01-24] MEDS ORDERED: FENTANYL CITRATE/PF 50MCG/ML 2ML VIAL IV PRN (12:54)
[2018-01-24] MEDS ORDERED: SODIUM CHLORIDE 0.9% 10ML VIAL ONE (15:19)
[2018-01-24] MEDS: SUCRALFATE 1 G/10 ML UDC PO SCH ×2 (16:52→20:48)
[2018-01-24 19:15] LABS: HEMATOCRIT 26.5 % (42.0-52.0); HEMOGLOBIN 9.1 g/dL (14.0-18.0)
[2018-01-24] MEDS: ZOLPIDEM TARTRATE 5MG TABLET PO PRN (20:49)
[2018-01-25] VITALS (12 sets, daily range): BP systolic 132–169; BP diastolic 75–98
[2018-01-25] MEDS: SODIUM CHLORIDE 0.9% 1,000 ML IV SCH ×2 (04:49→23:30)
[2018-01-25] MEDS: SUCRALFATE 1 G/10 ML UDC PO SCH ×4 (06:21→21:05)
[2018-01-25] MEDS: BLOOD SUGAR DIAGNOSTIC STRIP TEST SCH ×4 (06:22→20:37)
[2018-01-25] MEDS: PANTOPRAZOLE SODIUM 40 MG/VIAL IV SCH ×2 (06:22→17:24)
[2018-01-25] MEDS: INSULIN LISPRO 100 UNITS/ML SUBCUT SCH ×4 (07:13→21:06)
[2018-01-25] MEDS: LIDOCAINE 5% PATCH TOP SCH (08:49)
[2018-01-25] MEDS: MAGNESIUM OXIDE 400MG TABLET PO SCH (08:56)
[2018-01-25] MEDS: FOLIC ACID 1MG TABLET PO SCH (08:56)
[2018-01-25] MEDS: GUAIFENESIN 200MG/10ML SUGAR FREE UDC PO PRN ×3 (08:56→23:46)
[2018-01-25] MEDS: DUTASTERIDE 0.5MG CAPSULE PO SCH (08:56)
[2018-01-25] MEDS: FERROUS SULFATE 325MG TABLET PO SCH ×3 (08:56→17:24)
[2018-01-25] MEDS: TERBINAFINE HCL 1% CREAM 30GM TOP SCH ×2 (09:00→17:30)
[2018-01-25] MEDS ORDERED: SODIUM BICARBONATE 4% (2.4MEQ) 5ML VIAL IV ONE (09:22)
[2018-01-25 09:55] LABS: HEMOGLOBIN 9.6 g/dL (14.0-18.0); MEAN CORPUSCULAR HEMOGLOBIN 29.9 pg (28.0-32.0); MEAN CORPUSCULAR VOLUME 87.4 fL (80.0-94.0); PLATELET 199 x1000/uL (130-400); RED CELL DISTRIBUTION WIDTH 14.8 % (11.6-14.6)
[2018-01-25] MEDS ORDERED: LIDOCAINE HCL 1% 10 MG/ML 10ML VIAL ONE (10:11)
[2018-01-26] VITALS (12 sets, daily range): BP systolic 143–174; BP diastolic 77–97
[2018-01-26] MEDS: PANTOPRAZOLE SODIUM 40 MG/VIAL IV SCH ×2 (05:29→16:42)
[2018-01-26] MEDS: BLOOD SUGAR DIAGNOSTIC STRIP TEST SCH ×4 (06:00→20:40)
[2018-01-26] MEDS: SUCRALFATE 1 G/10 ML UDC PO SCH ×4 (06:00→20:40)
[2018-01-26 06:15] LABS: BASOPHILS % 0.2 % (0.0-2.0); EOSINOPHILS % 0.7 % (0.0-5.0); HEMATOCRIT. 25.2 % (42.0-52.0); HEMOGLOBIN. 8.8 g/dL (14.0-18.0); LYMPHOCYTES % 9.2 % (20.0-50.0); MEAN CORPUSCULAR HEMOGLOBIN 30.5 pg (28.0-32.0); MEAN CORPUSCULAR VOLUME 87.2 fL (80.0-94.0); MEAN PLATELET VOLUME 8.1 fl (7.4-10.4); MONOCYTES % 10.7 % (2.0-8.0); NEUTROPHILS % 79.2 % (40.0-76.0); PLATELET 182 x1000/uL (130-400); RED BLOOD CELL COUNT 2.89 mill/uL (4.7-6.1); RED CELL DISTRIBUTION WIDTH 14.8 % (11.6-14.6)
[2018-01-26] MEDS: INSULIN LISPRO 100 UNITS/ML SUBCUT SCH ×4 (07:20→20:41)
[2018-01-26] MEDS ORDERED: ERGOCALCIFEROL 50000UNITS CAPSULE PO SCH (09:00)
[2018-01-26] MEDS: LIDOCAINE 5% PATCH TOP SCH (09:00)
[2018-01-26] MEDS: TERBINAFINE HCL 1% CREAM 30GM TOP SCH ×2 (09:00→16:42)
[2018-01-26] MEDS: MAGNESIUM OXIDE 400MG TABLET PO SCH (09:20)
[2018-01-26] MEDS: FERROUS SULFATE 325MG TABLET PO SCH ×3 (09:20→16:42)
[2018-01-26] MEDS: DUTASTERIDE 0.5MG CAPSULE PO SCH (09:20)
[2018-01-26] MEDS: FOLIC ACID 1MG TABLET PO SCH (09:20)
[2018-01-26] MEDS ORDERED: CLONIDINE 0.1MG TABLET PO PRN (14:15)
[2018-01-26] MEDS: AMLODIPINE 2.5MG TABLET PO SCH (15:16)
[2018-01-26] MEDS: BENAZEPRIL 10MG TABLET PO SCH (15:58)
[2018-01-26] MEDS: GUAIFENESIN 200MG/10ML SUGAR FREE UDC PO PRN (20:40)
[2018-01-27] VITALS (11 sets, daily range): BP systolic 136–166; BP diastolic 77–97
[2018-01-27] MEDS: ZOLPIDEM TARTRATE 5MG TABLET PO PRN ×2 (00:10→23:14)
[2018-01-27] MEDS: SUCRALFATE 1 G/10 ML UDC PO SCH ×4 (06:17→20:37)
[2018-01-27] MEDS: PANTOPRAZOLE SODIUM 40 MG/VIAL IV SCH ×2 (06:17→17:09)
[2018-01-27] MEDS: FERROUS SULFATE 325MG TABLET PO SCH ×3 (06:17→17:09)
[2018-01-27] MEDS: BLOOD SUGAR DIAGNOSTIC STRIP TEST SCH ×4 (06:38→20:40)
[2018-01-27] MEDS: INSULIN LISPRO 100 UNITS/ML SUBCUT SCH ×4 (07:20→20:40)
[2018-01-27] MEDS: MAGNESIUM OXIDE 400MG TABLET PO SCH (08:24)
[2018-01-27] MEDS: DUTASTERIDE 0.5MG CAPSULE PO SCH (08:24)
[2018-01-27] MEDS: FOLIC ACID 1MG TABLET PO SCH (08:24)
[2018-01-27] MEDS: BENAZEPRIL 10MG TABLET PO SCH (08:25)
[2018-01-27] MEDS: AMLODIPINE 2.5MG TABLET PO SCH (08:25)
[2018-01-27] MEDS: TERBINAFINE HCL 1% CREAM 30GM TOP SCH ×2 (08:25→17:00)
[2018-01-27] MEDS: LIDOCAINE 5% PATCH TOP SCH (08:25)
[2018-01-27] MEDS: ACETAMINOPHEN 325MG TABLET PO PRN (12:00)
[2018-01-27] MEDS ORDERED: SODIUM BICARBONATE 4% (2.4MEQ) 5ML VIAL IV ONE (14:00)
[2018-01-27] MEDS: GUAIFENESIN 200MG/10ML SUGAR FREE UDC PO PRN ×2 (17:09→23:14)
[2018-01-28] VITALS (11 sets, daily range): BP systolic 131–164; BP diastolic 68–94
[2018-01-28] MEDS: INSULIN LISPRO 100 UNITS/ML SUBCUT SCH ×4 (06:18→20:29)
[2018-01-28] MEDS: BLOOD SUGAR DIAGNOSTIC STRIP TEST SCH ×4 (06:18→20:28)
[2018-01-28] MEDS: PANTOPRAZOLE SODIUM 40 MG/VIAL IV SCH ×2 (06:18→18:12)
[2018-01-28] MEDS: SUCRALFATE 1 G/10 ML UDC PO SCH ×4 (06:18→20:26)
[2018-01-28] MEDS: FERROUS SULFATE 325MG TABLET PO SCH ×3 (06:18→18:10)
[2018-01-28] MEDS: GUAIFENESIN 200MG/10ML SUGAR FREE UDC PO PRN (06:18)
[2018-01-28] MEDS: FOLIC ACID 1MG TABLET PO SCH (08:37)
[2018-01-28] MEDS: DUTASTERIDE 0.5MG CAPSULE PO SCH (08:37)
[2018-01-28] MEDS: MAGNESIUM OXIDE 400MG TABLET PO SCH (08:37)
[2018-01-28] MEDS: AMLODIPINE 2.5MG TABLET PO SCH (08:38)
[2018-01-28] MEDS: BENAZEPRIL 10MG TABLET PO SCH (08:38)
[2018-01-28] MEDS: LIDOCAINE 5% PATCH TOP SCH (08:39)
[2018-01-28] MEDS: TERBINAFINE HCL 1% CREAM 30GM TOP SCH ×2 (08:39→18:12)
[2018-01-28 11:05] LABS: BASOPHILS % 0.4 % (0.0-2.0); EOSINOPHILS % 0.7 % (0.0-5.0); HEMATOCRIT. 29.9 % (42.0-52.0); MEAN CORPUSCULAR HEMOGLOBIN 29.6 pg (28.0-32.0); MEAN CORPUSCULAR VOLUME 88.1 fL (80.0-94.0); MEAN PLATELET VOLUME 8.3 fl (7.4-10.4); MONOCYTES % 7.6 % (2.0-8.0); NEUTROPHILS % 80.3 % (40.0-76.0); PLATELET 207 x1000/uL (130-400); RED BLOOD CELL COUNT 3.39 mill/uL (4.7-6.1); RED CELL DISTRIBUTION WIDTH 14.4 % (11.6-14.6)
[2018-01-28] MEDS: ACETAMINOPHEN 325MG TABLET PO PRN (15:10)
[2018-01-28] MEDS: ZOLPIDEM TARTRATE 5MG TABLET PO PRN (20:25)
[2018-01-29] VITALS (7 sets, daily range): BP systolic 127–168; BP diastolic 65–80
[2018-01-29] MEDS: PANTOPRAZOLE SODIUM 40 MG/VIAL IV SCH ×2 (05:21→17:16)
[2018-01-29 06:56] LABS: BASOPHILS % 0.2 % (0.0-2.0); EOSINOPHILS % 0.9 % (0.0-5.0); HEMATOCRIT. 25.7 % (42.0-52.0); HEMOGLOBIN. 8.7 g/dL (14.0-18.0); LYMPHOCYTES % 10.7 % (20.0-50.0); MEAN CORPUSCULAR HEMOGLOBIN 29.9 pg (28.0-32.0); MEAN CORPUSCULAR VOLUME 88.3 fL (80.0-94.0); MONOCYTES % 8.5 % (2.0-8.0); NEUTROPHILS % 79.7 % (40.0-76.0); PLATELET 185 x1000/uL (130-400); RED BLOOD CELL COUNT 2.91 mill/uL (4.7-6.1); RED CELL DISTRIBUTION WIDTH 14.3 % (11.6-14.6)
[2018-01-29] MEDS: INSULIN LISPRO 100 UNITS/ML SUBCUT SCH ×4 (08:10→20:25)
[2018-01-29] MEDS: BLOOD SUGAR DIAGNOSTIC STRIP TEST SCH ×4 (08:32→20:25)
[2018-01-29] MEDS: MAGNESIUM OXIDE 400MG TABLET PO SCH (09:19)
[2018-01-29] MEDS: FOLIC ACID 1MG TABLET PO SCH (09:19)
[2018-01-29] MEDS: FERROUS SULFATE 325MG TABLET PO SCH ×3 (09:19→17:16)
[2018-01-29] MEDS: DUTASTERIDE 0.5MG CAPSULE PO SCH (09:19)
[2018-01-29] MEDS: SUCRALFATE 1 G/10 ML UDC PO SCH ×4 (09:19→20:21)
[2018-01-29] MEDS: AMLODIPINE 2.5MG TABLET PO SCH (09:20)
[2018-01-29] MEDS: LIDOCAINE 5% PATCH TOP SCH (09:20)
[2018-01-29] MEDS: TERBINAFINE HCL 1% CREAM 30GM TOP SCH ×2 (09:21→17:17)
[2018-01-29] MEDS: BENAZEPRIL 10MG TABLET PO SCH (09:24)
[2018-01-29] MEDS ORDERED: POTASSIUM CHLORIDE 20MEQ TABLET SR PO NR (12:30)
[2018-01-29] MEDS: GUAIFENESIN 200MG/10ML SUGAR FREE UDC PO PRN (12:50)
[2018-01-29] MEDS: ZOLPIDEM TARTRATE 5MG TABLET PO PRN (20:21)
[2018-01-29] MEDS: ACETAMINOPHEN 325MG TABLET PO PRN (20:25)
[2018-01-30 04:00] VITALS: BP 137/71
[2018-01-30 07:28] LABS: BASOPHILS % 0.2 % (0.0-2.0); EOSINOPHILS % 0.8 % (0.0-5.0); HEMOGLOBIN. 8.9 g/dL (14.0-18.0); LYMPHOCYTES % 9.5 % (20.0-50.0); MEAN CORPUSCULAR HEMOGLOBIN 30.2 pg (28.0-32.0); MEAN CORPUSCULAR VOLUME 88.6 fL (80.0-94.0); MEAN PLATELET VOLUME 9.1 fl (7.4-10.4); MONOCYTES % 9.4 % (2.0-8.0); NEUTROPHILS % 80.1 % (40.0-76.0); PLATELET 191 x1000/uL (130-400); RED BLOOD CELL COUNT 2.94 mill/uL (4.7-6.1); RED CELL DISTRIBUTION WIDTH 14.4 % (11.6-14.6)
[2018-01-30] MEDS: BLOOD SUGAR DIAGNOSTIC STRIP TEST SCH ×4 (07:57→20:50)
[2018-01-30] MEDS: INSULIN LISPRO 100 UNITS/ML SUBCUT SCH ×4 (07:57→20:53)
[2018-01-30 08:00] VITALS: BP 151/70
[2018-01-30] MEDS: DUTASTERIDE 0.5MG CAPSULE PO SCH (09:01)
[2018-01-30] MEDS: BENAZEPRIL 10MG TABLET PO SCH (09:01)
[2018-01-30] MEDS: SUCRALFATE 1 G/10 ML UDC PO SCH ×4 (09:01→20:47)
[2018-01-30] MEDS: FERROUS SULFATE 325MG TABLET PO SCH ×3 (09:01→16:58)
[2018-01-30] MEDS: PANTOPRAZOLE 40MG DR TABLET PO SCH ×2 (09:01→16:58)
[2018-01-30] MEDS: MAGNESIUM OXIDE 400MG TABLET PO SCH (09:02)
[2018-01-30] MEDS: TERBINAFINE HCL 1% CREAM 30GM TOP SCH ×2 (09:02→17:00)
[2018-01-30] MEDS: FOLIC ACID 1MG TABLET PO SCH (09:02)
[2018-01-30] MEDS: AMLODIPINE 2.5MG TABLET PO SCH (09:02)
[2018-01-30] MEDS: LIDOCAINE 5% PATCH TOP SCH (09:06)
[2018-01-30 12:00] VITALS: BP 136/73
[2018-01-30 16:00] VITALS: BP 119/63
[2018-01-30] MEDS ORDERED: LOPERAMIDE 2 MG/10 ML UDC PO NR (16:23)
[2018-01-30 20:00] VITALS: BP 117/62
[2018-01-30] MEDS: ZOLPIDEM TARTRATE 5MG TABLET PO PRN (23:01)
[2018-01-31] VITALS: BP 120/64
[2018-01-31 04:00] VITALS: BP 120/68
[2018-01-31 06:39] LABS: BASOPHILS % 0.5 % (0.0-2.0); HEMATOCRIT. 24.6 % (42.0-52.0); HEMOGLOBIN. 8.4 g/dL (14.0-18.0); LYMPHOCYTES % 11.4 % (20.0-50.0); MEAN CORPUSCULAR VOLUME 87.8 fL (80.0-94.0); MEAN PLATELET VOLUME 9.2 fl (7.4-10.4); MONOCYTES % 9.4 % (2.0-8.0); NEUTROPHILS % 77.7 % (40.0-76.0); PLATELET 199 x1000/uL (130-400); RED CELL DISTRIBUTION WIDTH 14.2 % (11.6-14.6)
[2018-01-31] MEDS: BLOOD SUGAR DIAGNOSTIC STRIP TEST SCH ×2 (07:43→12:10)
[2018-01-31] MEDS: INSULIN LISPRO 100 UNITS/ML SUBCUT SCH ×2 (07:45→12:10)
[2018-01-31] MEDS: SUCRALFATE 1 G/10 ML UDC PO SCH ×2 (08:20→12:09)
[2018-01-31] MEDS: AMLODIPINE 2.5MG TABLET PO SCH (08:21)
[2018-01-31] MEDS: MAGNESIUM OXIDE 400MG TABLET PO SCH (08:21)
[2018-01-31] MEDS: FOLIC ACID 1MG TABLET PO SCH (08:21)
[2018-01-31] MEDS: FERROUS SULFATE 325MG TABLET PO SCH ×2 (08:21→12:10)
[2018-01-31] MEDS: PANTOPRAZOLE 40MG DR TABLET PO SCH (08:21)
[2018-01-31] MEDS: TERBINAFINE HCL 1% CREAM 30GM TOP SCH (09:33)
[2018-01-31] MEDS: LIDOCAINE 5% PATCH TOP SCH (09:33)
[2018-01-31] MEDS: BENAZEPRIL 10MG TABLET PO SCH (09:35)
[2018-01-31] MEDS: DUTASTERIDE 0.5MG CAPSULE PO SCH (09:35)
[2018-01-31] MEDS ORDERED: POTASSIUM CHLORIDE 20MEQ TABLET SR PO NR (13:00)
[2018-01-31 14:57] VITALS: BP 126/85
== END 2018-01-31 16:22 | DRG 180 ==
LOC: 5WST 17:40 → 3WST 01-23 21:20 → 7WST 01-28 13:35
PROVIDERS: ADMIT Internal Medicine; ATTEND Internal Medicine
PROC: 30233N1 Transfusion of Nonautologous Red Blood Cells into Peripheral Vein, Percutaneous Approach (ICD-10-PCS; 2018-01-23)
PROC: 0DB58ZX Excision of Esophagus, Via Natural or Artificial Opening Endoscopic, Diagnostic (ICD-10-PCS; 2018-01-24)
PROC: 0DB68ZX Excision of Stomach, Via Natural or Artificial Opening Endoscopic, Diagnostic (ICD-10-PCS; 2018-01-24)
PROC: 0W9B3ZZ Drainage of Left Pleural Cavity, Percutaneous Approach (ICD-10-PCS; principal; 2018-01-25)
PROC: 0W9B3ZZ Drainage of Left Pleural Cavity, Percutaneous Approach (ICD-10-PCS; 2018-01-27)
DX: C34.90 Malignant neoplasm of unspecified part of unspecified bronchus or lung (principal); K29.71 Gastritis, unspecified, with bleeding; K22.11 Ulcer of esophagus with bleeding; J90 Pleural effusion, not elsewhere classified; D62 Acute posthemorrhagic anemia; D68.59 Other primary thrombophilia; R04.2 Hemoptysis; N17.9 Acute kidney failure, unspecified; I12.9 Hypertensive chronic kidney disease with stage 1 through stage 4 chronic kidney disease, or unspecified chronic kidney disease; N18.3 Chronic kidney disease, stage 3 (moderate); I95.9 Hypotension, unspecified; K44.9 Diaphragmatic hernia without obstruction or gangrene; E11.51 Type 2 diabetes mellitus with diabetic peripheral angiopathy without gangrene; E55.9 Vitamin D deficiency, unspecified; E78.00 Pure hypercholesterolemia, unspecified; E78.5 Hyperlipidemia, unspecified; E87.6 Hypokalemia; I25.10 Atherosclerotic heart disease of native coronary artery without angina pectoris; F51.04 Psychophysiologic insomnia; J44.9 Chronic obstructive pulmonary disease, unspecified; M19.90 Unspecified osteoarthritis, unspecified site; Z96.641 Presence of right artificial hip joint; E11.22 Type 2 diabetes mellitus with diabetic chronic kidney disease; E27.8 Other specified disorders of adrenal gland; N28.89 Other specified disorders of kidney and ureter; L89.620 Pressure ulcer of left heel, unstageable; D72.829 Elevated white blood cell count, unspecified; L60.3 Nail dystrophy; R15.9 Full incontinence of feces; N28.1 Cyst of kidney, acquired; K31.7 Polyp of stomach and duodenum; Z96.643 Presence of artificial hip joint, bilateral; Z86.73 Personal history of transient ischemic attack (TIA), and cerebral infarction without residual deficits; Z86.711 Personal history of pulmonary embolism; Z86.718 Personal history of other venous thrombosis and embolism; Z85.46 Personal history of malignant neoplasm of prostate; Z98.49 Cataract extraction status, unspecified eye; Z79.899 Other long term (current) drug therapy; Z87.891 Personal history of nicotine dependence; Z79.01 Long term (current) use of anticoagulants; Z79.4 Long term (current) use of insulin
CPT/HCPCS: 32555; 36415; 36600; 71045; 71250; 78306; 80048; 82270; 82375; 82805; 82945; 82962; 83615; 84157; 84484; 85014; 85018; 85025; 85027; 85610; 85730; 86301; 86850; 86900; 86920; 87070; 87102; 87116; 87205; 88108; 88305; 88312; 88313; 89050; 93005; 97116; 97163; 97166; 97530; A4216; A9503; C1893; C9113; J1650; J1815; J2250; J3010; J3490; J7030; J7040; J7050; P9016

== ENCOUNTER 2018-01-31 16:27 | Inpatient (IN) | payer MEDICARE, MEDICAID ==
[~2018-01-31] VITALS: Ht 188 cm; Wt 80.8 kg
[2018-01-31 16:47] VITALS: BP 151/64
[2018-01-31] MEDS ORDERED: MAGNESIUM HYDROXIDE 400MG/5ML 30ML UDC PO PRN (17:00)
[2018-01-31] MEDS ORDERED: CLONIDINE 0.1MG TABLET PO PRN (17:00)
[2018-01-31] MEDS ORDERED: ONDANSETRON HCL 4MG TABLET PO PRN (17:00)
[2018-01-31] MEDS ORDERED: DIPHENHYDRAMINE 25MG CAPSULE PO PRN (17:00)
[2018-01-31] MEDS ORDERED: DEXTROSE 50% WATER 50ML SYRINGE IV PRN ×2 (17:00→17:30)
[2018-01-31] MEDS ORDERED: GUAIFENESIN 200MG/10ML SUGAR FREE UDC PO PRN (17:00)
[2018-01-31 18:30] VITALS: BP 151/64
[2018-01-31 20:00] VITALS: BP 135/60
[2018-01-31] MEDS: FERROUS SULFATE 325MG TABLET PO SCH (20:14)
[2018-01-31] MEDS: INSULIN LISPRO 100 UNITS/ML SUBCUT SCH (20:15)
[2018-01-31] MEDS: SUCRALFATE 1 G/10 ML UDC PO SCH (20:15)
[2018-01-31] MEDS: PANTOPRAZOLE 40MG DR TABLET PO SCH (20:15)
[2018-01-31] MEDS: BLOOD SUGAR DIAGNOSTIC STRIP TEST SCH (20:15)
[2018-01-31] MEDS: ZOLPIDEM TARTRATE 5MG TABLET PO PRN (20:55)
[2018-01-31] MEDS: TERBINAFINE HCL 1% CREAM 30GM TOP SCH (20:56)
[2018-02-01] MEDS: SUCRALFATE 1 G/10 ML UDC PO SCH ×4 (06:31→20:47)
[2018-02-01] MEDS: BLOOD SUGAR DIAGNOSTIC STRIP TEST SCH ×4 (06:31→20:48)
[2018-02-01] MEDS: INSULIN LISPRO 100 UNITS/ML SUBCUT SCH ×4 (06:32→20:48)
[2018-02-01 08:00] VITALS: BP 123/65
[2018-02-01] MEDS: TERBINAFINE HCL 1% CREAM 30GM TOP SCH ×2 (09:33→17:31)
[2018-02-01] MEDS: LIDOCAINE 5% PATCH TOP SCH (09:34)
[2018-02-01] MEDS: FERROUS SULFATE 325MG TABLET PO SCH ×3 (09:34→17:30)
[2018-02-01] MEDS: BENAZEPRIL 10MG TABLET PO SCH (09:34)
[2018-02-01] MEDS: DUTASTERIDE 0.5MG CAPSULE PO SCH (09:34)
[2018-02-01] MEDS: AMLODIPINE 2.5MG TABLET PO SCH (09:35)
[2018-02-01] MEDS: PANTOPRAZOLE 40MG DR TABLET PO SCH ×2 (09:35→20:47)
[2018-02-01] MEDS: FOLIC ACID 1MG TABLET PO SCH (09:35)
[2018-02-01] MEDS: CYANOCOBALAMIN/FA/PYRIDOXINE TABLET PO SCH (10:57)
[2018-02-01 11:35] LABS: CHLORIDE 108 mEq/L (98-107)
[2018-02-01 11:37] LABS: BASOPHILS % 0.3 % (0.0-2.0); EOSINOPHILS % 0.9 % (0.0-5.0); HEMATOCRIT. 27.5 % (42.0-52.0); HEMOGLOBIN. 9.2 g/dL (14.0-18.0); LYMPHOCYTES % 8.2 % (20.0-50.0); MEAN CORPUSCULAR HEMOGLOBIN 29.4 pg (28.0-32.0); MEAN PLATELET VOLUME 8.8 fl (7.4-10.4); MONOCYTES % 7.7 % (2.0-8.0); NEUTROPHILS % 82.9 % (40.0-76.0); PLATELET 238 x1000/uL (130-400); RED BLOOD CELL COUNT 3.13 mill/uL (4.7-6.1); RED CELL DISTRIBUTION WIDTH 14.3 % (11.6-14.6)
[2018-02-01] MEDS: MAGNESIUM OXIDE 400MG TABLET PO SCH (13:51)
[2018-02-01] MEDS: ZOLPIDEM TARTRATE 5MG TABLET PO PRN (20:47)
[2018-02-01 21:37] VITALS: BP 121/54
[2018-02-02] MEDS: BLOOD SUGAR DIAGNOSTIC STRIP TEST SCH ×4 (05:35→21:13)
[2018-02-02] MEDS: INSULIN LISPRO 100 UNITS/ML SUBCUT SCH ×4 (05:35→21:32)
[2018-02-02] MEDS: SUCRALFATE 1 G/10 ML UDC PO SCH ×4 (05:35→21:11)
[2018-02-02 08:00] VITALS: BP 114/63
[2018-02-02] MEDS: MAGNESIUM OXIDE 400MG TABLET PO SCH (10:12)
[2018-02-02] MEDS: CYANOCOBALAMIN/FA/PYRIDOXINE TABLET PO SCH (10:12)
[2018-02-02] MEDS: FERROUS SULFATE 325MG TABLET PO SCH ×3 (10:12→17:16)
[2018-02-02] MEDS: TERBINAFINE HCL 1% CREAM 30GM TOP SCH ×2 (10:12→17:15)
[2018-02-02] MEDS: FOLIC ACID 1MG TABLET PO SCH (10:12)
[2018-02-02] MEDS: DUTASTERIDE 0.5MG CAPSULE PO SCH (10:12)
[2018-02-02] MEDS: ERGOCALCIFEROL 50000UNITS CAPSULE PO SCH (10:13)
[2018-02-02] MEDS: AMLODIPINE 2.5MG TABLET PO SCH (10:13)
[2018-02-02] MEDS: LIDOCAINE 5% PATCH TOP SCH (10:14)
[2018-02-02] MEDS: BENAZEPRIL 10MG TABLET PO SCH (10:14)
[2018-02-02 20:00] VITALS: BP 114/62
[2018-02-02] MEDS: ZOLPIDEM TARTRATE 5MG TABLET PO PRN (21:29)
[2018-02-03] MEDS: SUCRALFATE 1 G/10 ML UDC PO SCH ×4 (05:51→20:50)
[2018-02-03] MEDS: BLOOD SUGAR DIAGNOSTIC STRIP TEST SCH ×4 (05:53→20:49)
[2018-02-03] MEDS: INSULIN LISPRO 100 UNITS/ML SUBCUT SCH ×4 (06:30→20:50)
[2018-02-03 07:00] VITALS: BP 125/62
[2018-02-03 07:20] LABS: BASOPHILS % 0.3 % (0.0-2.0); EOSINOPHILS % 0.4 % (0.0-5.0); HEMATOCRIT. 25.3 % (42.0-52.0); HEMOGLOBIN. 8.7 g/dL (14.0-18.0); LYMPHOCYTES % 13.3 % (20.0-50.0); MEAN CORPUSCULAR HEMOGLOBIN 29.8 pg (28.0-32.0); MEAN CORPUSCULAR VOLUME 87.1 fL (80.0-94.0); MEAN PLATELET VOLUME 9.3 fl (7.4-10.4); PLATELET 233 x1000/uL (130-400); RED BLOOD CELL COUNT 2.91 mill/uL (4.7-6.1)
[2018-02-03 07:40] LABS: CHLORIDE 106 mEq/L (98-107)
[2018-02-03] MEDS: DUTASTERIDE 0.5MG CAPSULE PO SCH (08:52)
[2018-02-03] MEDS: CYANOCOBALAMIN/FA/PYRIDOXINE TABLET PO SCH (08:52)
[2018-02-03] MEDS: MAGNESIUM OXIDE 400MG TABLET PO SCH (08:53)
[2018-02-03] MEDS: FOLIC ACID 1MG TABLET PO SCH (08:53)
[2018-02-03] MEDS: BENAZEPRIL 10MG TABLET PO SCH (08:53)
[2018-02-03] MEDS: AMLODIPINE 2.5MG TABLET PO SCH (08:53)
[2018-02-03] MEDS: TERBINAFINE HCL 1% CREAM 30GM TOP SCH ×2 (08:55→17:50)
[2018-02-03] MEDS: FERROUS SULFATE 325MG TABLET PO SCH ×3 (08:55→16:37)
[2018-02-03] MEDS: LIDOCAINE 5% PATCH TOP SCH (08:56)
[2018-02-03] MEDS ORDERED: CYANOCOBALAMIN 1000MCG TABLET PO SCH (09:00)
[2018-02-03] MEDS: ACETAMINOPHEN 325MG TABLET PO PRN (12:55)
[2018-02-03 20:00] VITALS: BP 128/66
[2018-02-03] MEDS: ZOLPIDEM TARTRATE 5MG TABLET PO PRN (20:50)
[2018-02-04] MEDS: SUCRALFATE 1 G/10 ML UDC PO SCH ×4 (07:03→20:46)
[2018-02-04] MEDS: INSULIN LISPRO 100 UNITS/ML SUBCUT SCH ×4 (07:03→20:44)
[2018-02-04] MEDS: BLOOD SUGAR DIAGNOSTIC STRIP TEST SCH ×4 (07:03→20:44)
[2018-02-04 07:27] LABS: BASOPHILS % 0.3 % (0.0-2.0); EOSINOPHILS % 0.6 % (0.0-5.0); HEMATOCRIT. 23.7 % (42.0-52.0); HEMOGLOBIN. 8.1 g/dL (14.0-18.0); LYMPHOCYTES % 12.7 % (20.0-50.0); MEAN CORPUSCULAR HEMOGLOBIN 29.8 pg (28.0-32.0); MEAN CORPUSCULAR VOLUME 87.3 fL (80.0-94.0); MEAN PLATELET VOLUME 9.3 fl (7.4-10.4); NEUTROPHILS % 77.4 % (40.0-76.0); PLATELET 230 x1000/uL (130-400); RED BLOOD CELL COUNT 2.72 mill/uL (4.7-6.1); RED CELL DISTRIBUTION WIDTH 14.2 % (11.6-14.6)
[2018-02-04] MEDS: ACETAMINOPHEN 325MG TABLET PO PRN (07:51)
[2018-02-04 07:52] LABS: CHLORIDE 106 mEq/L (98-107)
[2018-02-04 08:00] VITALS: BP 113/52
[2018-02-04 08:01] LABS: PHOSPHORUS 3.3 mg/dL (2.5-4.9)
[2018-02-04 09:10] VITALS: BP 116/53
[2018-02-04] MEDS: MAGNESIUM OXIDE 400MG TABLET PO SCH (09:15)
[2018-02-04] MEDS: FOLIC ACID 1MG TABLET PO SCH (09:15)
[2018-02-04] MEDS: DUTASTERIDE 0.5MG CAPSULE PO SCH (09:15)
[2018-02-04] MEDS: CYANOCOBALAMIN/FA/PYRIDOXINE TABLET PO SCH (09:15)
[2018-02-04] MEDS: FERROUS SULFATE 325MG TABLET PO SCH ×3 (09:16→16:49)
[2018-02-04] MEDS: BENAZEPRIL 10MG TABLET PO SCH (09:16)
[2018-02-04] MEDS: AMLODIPINE 2.5MG TABLET PO SCH (09:16)
[2018-02-04] MEDS: LIDOCAINE 5% PATCH TOP SCH (09:17)
[2018-02-04] MEDS: TERBINAFINE HCL 1% CREAM 30GM TOP SCH ×2 (10:14→16:57)
[2018-02-04 20:00] VITALS: BP 121/60
[2018-02-04] MEDS: ZOLPIDEM TARTRATE 5MG TABLET PO PRN (20:46)
[2018-02-05] MEDS ORDERED: ZOLPIDEM TARTRATE 5MG TABLET PO PRN (03:30)
[2018-02-05] MEDS: BLOOD SUGAR DIAGNOSTIC STRIP TEST SCH ×4 (06:45→21:00)
[2018-02-05] MEDS: SUCRALFATE 1 G/10 ML UDC PO SCH ×4 (06:45→22:58)
[2018-02-05 06:50] VITALS: BP 107/51
[2018-02-05 06:51] VITALS: BP 110/55
[2018-02-05 06:52] VITALS: BP 113/45
[2018-02-05 08:00] VITALS: BP 123/45
[2018-02-05] MEDS: BENAZEPRIL 10MG TABLET PO SCH (09:00)
[2018-02-05] MEDS: INSULIN LISPRO 100 UNITS/ML SUBCUT SCH ×4 (09:00→21:00)
[2018-02-05] MEDS: AMLODIPINE 2.5MG TABLET PO SCH (09:00)
[2018-02-05] MEDS: LIDOCAINE 5% PATCH TOP SCH (09:19)
[2018-02-05] MEDS: FOLIC ACID 1MG TABLET PO SCH (09:19)
[2018-02-05] MEDS: FERROUS SULFATE 325MG TABLET PO SCH ×3 (09:20→17:43)
[2018-02-05] MEDS: DUTASTERIDE 0.5MG CAPSULE PO SCH (09:20)
[2018-02-05] MEDS: CYANOCOBALAMIN/FA/PYRIDOXINE TABLET PO SCH (09:20)
[2018-02-05] MEDS: MAGNESIUM/ALUMINUM HYDROXIDE/SIMETHICONE 30ML UDC PO PRN ×2 (09:20→09:22)
[2018-02-05] MEDS: TRAMADOL 50MG TABLET PO PRN ×2 (09:22→14:21)
[2018-02-05] MEDS: MAGNESIUM OXIDE 400MG TABLET PO SCH (10:47)
[2018-02-05] MEDS: TERBINAFINE HCL 1% CREAM 30GM TOP SCH ×2 (12:48→17:46)
[2018-02-05 20:00] VITALS: BP_SYST 101; BP_SYST 111; BP_SYST 113; BP_DIAS 52; BP_DIAS 54; BP_DIAS 57
[2018-02-06] MEDS: ZOLPIDEM TARTRATE 5MG TABLET PO PRN ×2 (01:44→23:53)
[2018-02-06] MEDS: BLOOD SUGAR DIAGNOSTIC STRIP TEST SCH ×4 (06:30→21:32)
[2018-02-06 07:27] LABS: BASOPHILS % 0.5 % (0.0-2.0); EOSINOPHILS % 1.1 % (0.0-5.0); HEMOGLOBIN. 7.5 g/dL (14.0-18.0); LYMPHOCYTES % 16.2 % (20.0-50.0); MEAN CORPUSCULAR HEMOGLOBIN 29.8 pg (28.0-32.0); MEAN PLATELET VOLUME 8.9 fl (7.4-10.4); MONOCYTES % 11.5 % (2.0-8.0); NEUTROPHILS % 70.7 % (40.0-76.0); PLATELET 219 x1000/uL (130-400); RED BLOOD CELL COUNT 2.51 mill/uL (4.7-6.1); RED CELL DISTRIBUTION WIDTH 14.7 % (11.6-14.6)
[2018-02-06] MEDS: SUCRALFATE 1 G/10 ML UDC PO SCH ×4 (07:30→20:55)
[2018-02-06] MEDS: TRAMADOL 50MG TABLET PO PRN (07:34)
[2018-02-06 08:11] VITALS: BP 105/57
[2018-02-06] MEDS: BENAZEPRIL 10MG TABLET PO SCH (09:00)
[2018-02-06] MEDS: INSULIN LISPRO 100 UNITS/ML SUBCUT SCH ×4 (09:00→21:00)
[2018-02-06] MEDS: AMLODIPINE 2.5MG TABLET PO SCH (09:00)
[2018-02-06] MEDS: CYANOCOBALAMIN/FA/PYRIDOXINE TABLET PO SCH (09:36)
[2018-02-06] MEDS: FERROUS SULFATE 325MG TABLET PO SCH ×3 (09:36→17:15)
[2018-02-06] MEDS: DUTASTERIDE 0.5MG CAPSULE PO SCH (09:36)
[2018-02-06] MEDS: FOLIC ACID 1MG TABLET PO SCH (09:36)
[2018-02-06] MEDS: MAGNESIUM OXIDE 400MG TABLET PO SCH (09:36)
[2018-02-06] MEDS: TERBINAFINE HCL 1% CREAM 30GM TOP SCH ×2 (09:37→17:15)
[2018-02-06] MEDS: LIDOCAINE 5% PATCH TOP SCH (09:39)
[2018-02-06 20:00] VITALS: BP_SYST 106; BP_SYST 111; BP_SYST 118; BP_DIAS 54; BP_DIAS 58; BP_DIAS 59
[2018-02-06 22:46] VITALS: BP 92/48
[2018-02-06 23:00] VITALS: BP 105/47
[2018-02-07] VITALS: BP 113/54
[2018-02-07 01:00] VITALS: BP 116/54
[2018-02-07 01:37] VITALS: BP 105/54
[2018-02-07] MEDS: SUCRALFATE 1 G/10 ML UDC PO SCH ×4 (05:47→21:20)
[2018-02-07] MEDS: BLOOD SUGAR DIAGNOSTIC STRIP TEST SCH ×4 (05:49→21:40)
[2018-02-07] MEDS: INSULIN LISPRO 100 UNITS/ML SUBCUT SCH ×4 (06:14→21:00)
[2018-02-07 06:43] LABS: BASOPHILS % 0.3 % (0.0-2.0); EOSINOPHILS % 1.1 % (0.0-5.0); HEMATOCRIT. 25.3 % (42.0-52.0); HEMOGLOBIN. 8.7 g/dL (14.0-18.0); LYMPHOCYTES % 15.4 % (20.0-50.0); MEAN CORPUSCULAR HEMOGLOBIN 29.9 pg (28.0-32.0); MEAN CORPUSCULAR VOLUME 86.6 fL (80.0-94.0); MEAN PLATELET VOLUME 8.9 fl (7.4-10.4); MONOCYTES % 11.1 % (2.0-8.0); NEUTROPHILS % 72.1 % (40.0-76.0); PLATELET 234 x1000/uL (130-400); RED BLOOD CELL COUNT 2.92 mill/uL (4.7-6.1); RED CELL DISTRIBUTION WIDTH 14.3 % (11.6-14.6)
[2018-02-07] MEDS: TRAMADOL 50MG TABLET PO PRN (06:59)
[2018-02-07 07:54] VITALS: BP 110/49
[2018-02-07] MEDS: FOLIC ACID 1MG TABLET PO SCH (08:20)
[2018-02-07] MEDS: FERROUS SULFATE 325MG TABLET PO SCH ×3 (08:20→17:42)
[2018-02-07] MEDS: TERBINAFINE HCL 1% CREAM 30GM TOP SCH ×2 (08:20→18:42)
[2018-02-07] MEDS: AMLODIPINE 2.5MG TABLET PO SCH (08:20)
[2018-02-07] MEDS: DUTASTERIDE 0.5MG CAPSULE PO SCH (08:20)
[2018-02-07] MEDS: CYANOCOBALAMIN/FA/PYRIDOXINE TABLET PO SCH (08:20)
[2018-02-07] MEDS: MAGNESIUM OXIDE 400MG TABLET PO SCH (08:20)
[2018-02-07] MEDS: BENAZEPRIL 10MG TABLET PO SCH (08:21)
[2018-02-07] MEDS: LIDOCAINE 5% PATCH TOP SCH (08:22)
[2018-02-07 20:00] VITALS: BP 115/58
[2018-02-07] MEDS: ZOLPIDEM TARTRATE 5MG TABLET PO PRN (21:40)
[2018-02-08] MEDS: BLOOD SUGAR DIAGNOSTIC STRIP TEST SCH ×4 (06:28→21:45)
[2018-02-08] MEDS: SUCRALFATE 1 G/10 ML UDC PO SCH ×4 (06:28→21:44)
[2018-02-08] MEDS: INSULIN LISPRO 100 UNITS/ML SUBCUT SCH ×4 (06:31→21:00)
[2018-02-08 08:19] VITALS: BP 128/61
[2018-02-08] MEDS: TERBINAFINE HCL 1% CREAM 30GM TOP SCH ×2 (09:00→17:00)
[2018-02-08] MEDS: BENAZEPRIL 10MG TABLET PO SCH (09:10)
[2018-02-08] MEDS: FOLIC ACID 1MG TABLET PO SCH (09:10)
[2018-02-08] MEDS: CYANOCOBALAMIN/FA/PYRIDOXINE TABLET PO SCH (09:10)
[2018-02-08] MEDS: MAGNESIUM OXIDE 400MG TABLET PO SCH (09:10)
[2018-02-08] MEDS: DUTASTERIDE 0.5MG CAPSULE PO SCH (09:10)
[2018-02-08] MEDS: FERROUS SULFATE 325MG TABLET PO SCH ×3 (09:10→17:22)
[2018-02-08] MEDS: AMLODIPINE 2.5MG TABLET PO SCH (09:10)
[2018-02-08] MEDS: LIDOCAINE 5% PATCH TOP SCH (09:23)
[2018-02-08 20:00] VITALS: BP_SYST 113; BP_SYST 129; BP_SYST 131; BP_DIAS 50; BP_DIAS 60; BP_DIAS 63
[2018-02-08] MEDS: ZOLPIDEM TARTRATE 5MG TABLET PO PRN (21:45)
[2018-02-09] MEDS: SUCRALFATE 1 G/10 ML UDC PO SCH ×4 (06:56→20:42)
[2018-02-09] MEDS: BLOOD SUGAR DIAGNOSTIC STRIP TEST SCH ×4 (06:56→20:42)
[2018-02-09 07:58] VITALS: BP 123/65
[2018-02-09 08:20] LABS: BASOPHILS % 0.5 % (0.0-2.0); EOSINOPHILS % 0.8 % (0.0-5.0); HEMATOCRIT. 26.2 % (42.0-52.0); LYMPHOCYTES % 17.2 % (20.0-50.0); MEAN CORPUSCULAR HEMOGLOBIN 29.6 pg (28.0-32.0); MEAN CORPUSCULAR VOLUME 86.3 fL (80.0-94.0); MEAN PLATELET VOLUME 8.5 fl (7.4-10.4); MONOCYTES % 10.7 % (2.0-8.0); NEUTROPHILS % 70.8 % (40.0-76.0); PLATELET 245 x1000/uL (130-400); RED BLOOD CELL COUNT 3.03 mill/uL (4.7-6.1); RED CELL DISTRIBUTION WIDTH 14.2 % (11.6-14.6)
[2018-02-09] MEDS: INSULIN LISPRO 100 UNITS/ML SUBCUT SCH ×4 (09:00→20:42)
[2018-02-09] MEDS: MAGNESIUM OXIDE 400MG TABLET PO SCH (09:13)
[2018-02-09] MEDS: CYANOCOBALAMIN/FA/PYRIDOXINE TABLET PO SCH (09:13)
[2018-02-09] MEDS: ERGOCALCIFEROL 50000UNITS CAPSULE PO SCH (09:13)
[2018-02-09] MEDS: FOLIC ACID 1MG TABLET PO SCH (09:13)
[2018-02-09] MEDS: FERROUS SULFATE 325MG TABLET PO SCH ×3 (09:13→17:14)
[2018-02-09] MEDS: DUTASTERIDE 0.5MG CAPSULE PO SCH (09:13)
[2018-02-09] MEDS: BENAZEPRIL 10MG TABLET PO SCH (09:14)
[2018-02-09] MEDS: AMLODIPINE 2.5MG TABLET PO SCH (09:14)
[2018-02-09] MEDS: LIDOCAINE 5% PATCH TOP SCH (09:15)
[2018-02-09] MEDS: TERBINAFINE HCL 1% CREAM 30GM TOP SCH ×2 (09:15→17:17)
[2018-02-09 15:45] VITALS: BP_SYST 130; BP_SYST 134; BP_SYST 136; BP_DIAS 63; BP_DIAS 65; BP_DIAS 68
[2018-02-09 16:27] LABS: CHLORIDE 105 mEq/L (98-107)
[2018-02-09] MEDS ORDERED: TRAMADOL 50MG TABLET PO PRN (18:45)
[2018-02-09 20:00] VITALS: BP_SYST 123; BP_SYST 124; BP_SYST 129; BP_DIAS 55; BP_DIAS 65; BP_DIAS 74
[2018-02-09] MEDS: ZOLPIDEM TARTRATE 5MG TABLET PO PRN (21:28)
[2018-02-10] MEDS: SUCRALFATE 1 G/10 ML UDC PO SCH ×4 (06:23→21:18)
[2018-02-10] MEDS: BLOOD SUGAR DIAGNOSTIC STRIP TEST SCH ×4 (06:25→21:18)
[2018-02-10] MEDS: INSULIN LISPRO 100 UNITS/ML SUBCUT SCH ×4 (06:25→21:00)
[2018-02-10 07:56] VITALS: BP 134/70
[2018-02-10] MEDS: FOLIC ACID 1MG TABLET PO SCH (08:39)
[2018-02-10] MEDS: DUTASTERIDE 0.5MG CAPSULE PO SCH (08:39)
[2018-02-10] MEDS: MAGNESIUM OXIDE 400MG TABLET PO SCH (08:39)
[2018-02-10] MEDS: CYANOCOBALAMIN/FA/PYRIDOXINE TABLET PO SCH (08:39)
[2018-02-10] MEDS: LIDOCAINE 5% PATCH TOP SCH (08:39)
[2018-02-10] MEDS: FERROUS SULFATE 325MG TABLET PO SCH ×3 (08:39→17:38)
[2018-02-10] MEDS: TERBINAFINE HCL 1% CREAM 30GM TOP SCH ×2 (08:40→17:40)
[2018-02-10] MEDS: BENAZEPRIL 10MG TABLET PO SCH (08:40)
[2018-02-10] MEDS: AMLODIPINE 2.5MG TABLET PO SCH (08:40)
[2018-02-10] MEDS: ACETAMINOPHEN 325MG TABLET PO PRN (08:45)
[2018-02-10 20:00] VITALS: BP 156/67
[2018-02-10] MEDS: ZOLPIDEM TARTRATE 5MG TABLET PO PRN (21:18)
[2018-02-11] MEDS: BLOOD SUGAR DIAGNOSTIC STRIP TEST SCH ×2 (06:39→11:15)
[2018-02-11] MEDS: SUCRALFATE 1 G/10 ML UDC PO SCH ×2 (06:40→12:15)
[2018-02-11 08:00] VITALS: BP 120/67
[2018-02-11] MEDS: ACETAMINOPHEN 325MG TABLET PO PRN (08:05)
[2018-02-11] MEDS: AMLODIPINE 2.5MG TABLET PO SCH (08:51)
[2018-02-11] MEDS: FOLIC ACID 1MG TABLET PO SCH (08:51)
[2018-02-11] MEDS: LIDOCAINE 5% PATCH TOP SCH (08:51)
[2018-02-11] MEDS: CYANOCOBALAMIN/FA/PYRIDOXINE TABLET PO SCH (08:52)
[2018-02-11] MEDS: DUTASTERIDE 0.5MG CAPSULE PO SCH (08:52)
[2018-02-11] MEDS: BENAZEPRIL 10MG TABLET PO SCH (08:52)
[2018-02-11] MEDS: FERROUS SULFATE 325MG TABLET PO SCH ×2 (08:52→12:15)
[2018-02-11] MEDS: INSULIN LISPRO 100 UNITS/ML SUBCUT SCH ×2 (08:53→12:16)
[2018-02-11] MEDS: MAGNESIUM OXIDE 400MG TABLET PO SCH (08:55)
[2018-02-11] MEDS: TERBINAFINE HCL 1% CREAM 30GM TOP SCH (08:55)
[2018-02-11 13:26] VITALS: BP 120/67
== END 2018-02-11 14:50 | disposition home health service (06) | DRG 535 ==
PROVIDERS: ADMIT Physical Medicine & Rehabilitation Spinal Cord Injury Medicine; ATTEND Internal Medicine
PROC: 0HBRXZZ Excision of Toe Nail, External Approach (ICD-10-PCS; principal; 2018-02-03)
PROC: 0HBRXZZ Excision of Toe Nail, External Approach (ICD-10-PCS; 2018-02-03)
PROC: 0HBRXZZ Excision of Toe Nail, External Approach (ICD-10-PCS; 2018-02-03)
PROC: 0HBRXZZ Excision of Toe Nail, External Approach (ICD-10-PCS; 2018-02-03)
PROC: 0HBRXZZ Excision of Toe Nail, External Approach (ICD-10-PCS; 2018-02-03)
PROC: 0HBRXZZ Excision of Toe Nail, External Approach (ICD-10-PCS; 2018-02-03)
PROC: 0HBRXZZ Excision of Toe Nail, External Approach (ICD-10-PCS; 2018-02-03)
PROC: 0HBRXZZ Excision of Toe Nail, External Approach (ICD-10-PCS; 2018-02-03)
PROC: 0HBRXZZ Excision of Toe Nail, External Approach (ICD-10-PCS; 2018-02-03)
PROC: 0HBRXZZ Excision of Toe Nail, External Approach (ICD-10-PCS; 2018-02-03)
PROC: 30233N1 Transfusion of Nonautologous Red Blood Cells into Peripheral Vein, Percutaneous Approach (ICD-10-PCS; 2018-02-06)
DX: S72.011A Unspecified intracapsular fracture of right femur, initial encounter for closed fracture (principal); I26.99 Other pulmonary embolism without acute cor pulmonale; K92.2 Gastrointestinal hemorrhage, unspecified; N17.9 Acute kidney failure, unspecified; E46 Unspecified protein-calorie malnutrition; J90 Pleural effusion, not elsewhere classified; I82.411 Acute embolism and thrombosis of right femoral vein; W18.39XA Other fall on same level, initial encounter; Y93.89 Activity, other specified; Y92.89 Other specified places as the place of occurrence of the external cause; Y99.8 Other external cause status; Z86.711 Personal history of pulmonary embolism; D63.8 Anemia in other chronic diseases classified elsewhere; K31.7 Polyp of stomach and duodenum; R53.81 Other malaise; R26.9 Unspecified abnormalities of gait and mobility; N18.3 Chronic kidney disease, stage 3 (moderate); E11.22 Type 2 diabetes mellitus with diabetic chronic kidney disease; E11.51 Type 2 diabetes mellitus with diabetic peripheral angiopathy without gangrene; Z85.46 Personal history of malignant neoplasm of prostate; E87.6 Hypokalemia; M19.90 Unspecified osteoarthritis, unspecified site; E78.5 Hyperlipidemia, unspecified; E55.9 Vitamin D deficiency, unspecified; E78.00 Pure hypercholesterolemia, unspecified; L60.0 Ingrowing nail; L60.3 Nail dystrophy; N28.1 Cyst of kidney, acquired; Z86.718 Personal history of other venous thrombosis and embolism; Z86.73 Personal history of transient ischemic attack (TIA), and cerebral infarction without residual deficits; Z87.891 Personal history of nicotine dependence; Z96.641 Presence of right artificial hip joint; R29.6 Repeated falls; Z68.22 Body mass index [BMI] 22.0-22.9, adult; I12.9 Hypertensive chronic kidney disease with stage 1 through stage 4 chronic kidney disease, or unspecified chronic kidney disease
CPT/HCPCS: 36415; 71045; 74176; 80048; 82270; 82962; 83735; 84100; 84134; 86850; 86900; 86920; 92523; 93970; 97110; 97116; 97162; 97167; 97530; 97535; A6261; G0515; J1815; J7050; P9016

== ENCOUNTER 2019-03-09 06:29 | Inpatient (IN) | payer MEDICARE, MEDICAID ==
[~2019-03-09] VITALS: Ht 188 cm; Wt 90.3 kg
[2019-03-09] MEDS ORDERED: MORPHINE SULFATE 4 MG/ML CPJ (NOT FOR IM USE) IV ONE ×2 (07:00→09:30)
[2019-03-09 08:31] LABS: BASOPHILS % 0.3 % (0.0-2.0); EOSINOPHILS % 0.5 % (0.0-5.0); HEMATOCRIT. 40.8 % (42.0-52.0); HEMOGLOBIN. 13.4 g/dL (14.0-18.0); LYMPHOCYTES % 10.8 % (20.0-50.0); MEAN CORPUSCULAR VOLUME 91.4 fL (80.0-94.0); MONOCYTES % 7.8 % (2.0-8.0); NEUTROPHILS % 80.6 % (40.0-76.0); PLATELET 172 x1000/uL (130-400); RED BLOOD CELL COUNT 4.47 mill/uL (4.7-6.1); RED CELL DISTRIBUTION WIDTH 13.9 % (11.6-14.6)
[2019-03-09 08:34] LABS: CHLORIDE 107 mEq/L (98-107)
[2019-03-09 08:35] LABS: INR 0.9; PROTHROMBIN TIME 9.8 sec (9.6-11.0)
[2019-03-09] MEDS ORDERED: HYDRALAZINE 20MG/ML VIAL IV PRN (15:00)
[2019-03-09] MEDS ORDERED: ACETAMINOPHEN 325MG TABLET PO PRN (15:00)
[2019-03-09] MEDS ORDERED: MAGNESIUM/ALUMINUM HYDROXIDE/SIMETHICONE 30ML UDC PO PRN (15:00)
[2019-03-09] MEDS ORDERED: DEXTROSE 50% WATER 50ML SYRINGE IV PRN (15:00)
[2019-03-09] MEDS ORDERED: DIPHENHYDRAMINE 50MG/ML VIAL IV PRN (15:00)
[2019-03-09] MEDS ORDERED: CLONIDINE 0.1MG TABLET PO PRN (15:00)
[2019-03-09] MEDS ORDERED: IPRATROPIUM/ALBUTEROL 0.5-3(2.5)MG/3ML NEB NEB PRN (15:00)
[2019-03-09] MEDS ORDERED: ONDANSETRON HCL 4MG/2ML INJ IV PRN (15:00)
[2019-03-09 16:00] VITALS: BP_SYST 169; BP_DIAS 103; BP_DIAS 105
[2019-03-09] MEDS ORDERED: GLIP5TAB12 MT (16:53)
[2019-03-09] MEDS ORDERED: ATEN-42 MT (16:53)
[2019-03-09] MEDS ORDERED: SIMV5TAB58 MT (16:53)
[2019-03-09] MEDS ORDERED: BENA5TAB6 MT (16:53)
[2019-03-09] MEDS: MORPHINE SULFATE 4 MG/ML CPJ (NOT FOR IM USE) IV PRN (17:03)
[2019-03-09] MEDS: INSULIN LISPRO 100 UNITS/ML SUBCUT SCH ×2 (17:22→20:58)
[2019-03-09] MEDS: BLOOD SUGAR DIAGNOSTIC STRIP TEST SCH ×2 (17:22→20:57)
[2019-03-09] MEDS: ENOXAPARIN 30MG/0.3ML SYR SUBCUT SCH (17:29)
[2019-03-09 20:00] VITALS: BP 187/83
[2019-03-09] MEDS: AMLODIPINE 5MG TABLET PO SCH (20:57)
[2019-03-09] MEDS: FAMOTIDINE 20MG TABLET PO SCH (20:57)
[2019-03-09] MEDS: BENAZEPRIL 10MG TABLET PO SCH (20:57)
[2019-03-09] MEDS: SODIUM CHLORIDE 0.9% INJ 3ML FLUSH IVF SCH (21:01)
[2019-03-10] VITALS (7 sets, daily range): BP systolic 114–163; BP diastolic 46–82
[2019-03-10] MEDS: MORPHINE SULFATE 4 MG/ML CPJ (NOT FOR IM USE) IV PRN (00:36)
[2019-03-10] MEDS: HYDROCODONE/ACETAMINOPHEN 10/325MG TABLET PO PRN ×3 (03:54→22:23)
[2019-03-10] MEDS: SODIUM CHLORIDE 0.9% INJ 3ML FLUSH IVF SCH ×3 (06:22→22:23)
[2019-03-10] MEDS: BLOOD SUGAR DIAGNOSTIC STRIP TEST SCH ×4 (06:22→22:23)
[2019-03-10 06:55] LABS: BASOPHILS % 0.3 % (0.0-2.0); EOSINOPHILS % 0.8 % (0.0-5.0); HEMATOCRIT. 37.3 % (42.0-52.0); HEMOGLOBIN. 12.3 g/dL (14.0-18.0); LYMPHOCYTES % 13.1 % (20.0-50.0); MEAN CORPUSCULAR HEMOGLOBIN 29.7 pg (28.0-32.0); MEAN CORPUSCULAR VOLUME 90.5 fL (80.0-94.0); MONOCYTES % 10.6 % (2.0-8.0); NEUTROPHILS % 75.2 % (40.0-76.0); PLATELET 195 x1000/uL (130-400); RED BLOOD CELL COUNT 4.12 mill/uL (4.7-6.1)
[2019-03-10 07:08] LABS: CHLORIDE 104 mEq/L (98-107)
[2019-03-10 07:22] LABS: PHOSPHORUS 4.4 mg/dL (2.5-4.9)
[2019-03-10] MEDS ORDERED: INFLUENZA VIRUS VACCINE(AFLURIA) 0.5ML SYR IM ONE (08:00)
[2019-03-10] MEDS: INSULIN LISPRO 100 UNITS/ML SUBCUT SCH ×4 (08:10→22:29)
[2019-03-10] MEDS: DUTASTERIDE 0.5MG CAPSULE PO SCH (09:06)
[2019-03-10] MEDS: AMLODIPINE 5MG TABLET PO SCH ×2 (09:06→22:22)
[2019-03-10] MEDS: BENAZEPRIL 10MG TABLET PO SCH ×2 (09:07→18:17)
[2019-03-10] MEDS: ENOXAPARIN 30MG/0.3ML SYR SUBCUT SCH (18:18)
[2019-03-10] MEDS: FAMOTIDINE 20MG TABLET PO SCH (22:22)
[2019-03-11] VITALS: BP 118/62
[2019-03-11 04:00] VITALS: BP 125/69
[2019-03-11] MEDS: HYDROCODONE/ACETAMINOPHEN 10/325MG TABLET PO PRN ×2 (04:48→22:20)
[2019-03-11] MEDS: MORPHINE SULFATE 4 MG/ML CPJ (NOT FOR IM USE) IV PRN ×2 (05:13→15:25)
[2019-03-11] MEDS: SODIUM CHLORIDE 0.9% INJ 3ML FLUSH IVF SCH ×3 (07:02→22:19)
[2019-03-11] MEDS: BLOOD SUGAR DIAGNOSTIC STRIP TEST SCH ×4 (07:02→20:58)
[2019-03-11] MEDS: INSULIN LISPRO 100 UNITS/ML SUBCUT SCH ×4 (07:02→20:59)
[2019-03-11 08:00] VITALS: BP 113/57
[2019-03-11] MEDS: DUTASTERIDE 0.5MG CAPSULE PO SCH (08:55)
[2019-03-11] MEDS: BENAZEPRIL 10MG TABLET PO SCH ×2 (08:56→18:30)
[2019-03-11] MEDS: AMLODIPINE 5MG TABLET PO SCH ×2 (08:56→22:19)
[2019-03-11 12:00] VITALS: BP 127/62
[2019-03-11 16:00] VITALS: BP 138/60
[2019-03-11] MEDS: OXYCODONE HCL 5MG TABLET PO SCH (18:30)
[2019-03-11] MEDS: ENOXAPARIN 30MG/0.3ML SYR SUBCUT SCH (18:30)
[2019-03-11 20:00] VITALS: BP 139/64
[2019-03-11] MEDS: FAMOTIDINE 20MG TABLET PO SCH (22:19)
[2019-03-12] VITALS: BP 130/69
[2019-03-12 04:00] VITALS: BP 125/63
[2019-03-12] MEDS: SODIUM CHLORIDE 0.9% INJ 3ML FLUSH IVF SCH ×3 (05:22→22:11)
[2019-03-12] MEDS: BLOOD SUGAR DIAGNOSTIC STRIP TEST SCH ×4 (07:40→21:00)
[2019-03-12 08:00] VITALS: BP 142/67
[2019-03-12] MEDS: INSULIN LISPRO 100 UNITS/ML SUBCUT SCH ×4 (08:10→21:00)
[2019-03-12] MEDS: OXYCODONE HCL 5MG TABLET PO SCH ×3 (08:56→18:07)
[2019-03-12] MEDS: DUTASTERIDE 0.5MG CAPSULE PO SCH (09:01)
[2019-03-12] MEDS: AMLODIPINE 5MG TABLET PO SCH ×2 (09:01→21:55)
[2019-03-12] MEDS: BENAZEPRIL 10MG TABLET PO SCH ×2 (09:02→17:58)
[2019-03-12 12:00] VITALS: BP 117/57
[2019-03-12] MEDS: LACTULOSE 20G/30ML UDC PO SCH ×2 (17:58→21:00)
[2019-03-12] MEDS: ENOXAPARIN 30MG/0.3ML SYR SUBCUT SCH (18:00)
[2019-03-12 20:00] VITALS: BP 151/62
[2019-03-12] MEDS: FAMOTIDINE 20MG TABLET PO SCH (21:55)
[2019-03-13] VITALS: BP 134/73
[2019-03-13 04:00] VITALS: BP 154/77
[2019-03-13] MEDS: SODIUM CHLORIDE 0.9% INJ 3ML FLUSH IVF SCH ×3 (06:29→21:50)
[2019-03-13] MEDS: BLOOD SUGAR DIAGNOSTIC STRIP TEST SCH ×4 (07:40→21:03)
[2019-03-13] MEDS: INSULIN LISPRO 100 UNITS/ML SUBCUT SCH ×4 (08:10→21:00)
[2019-03-13 08:19] VITALS: BP 132/64
[2019-03-13] MEDS: LACTULOSE 20G/30ML UDC PO SCH (08:54)
[2019-03-13] MEDS: AMLODIPINE 5MG TABLET PO SCH ×2 (08:56→20:51)
[2019-03-13] MEDS: DUTASTERIDE 0.5MG CAPSULE PO SCH (08:56)
[2019-03-13] MEDS: BENAZEPRIL 10MG TABLET PO SCH ×2 (08:58→20:52)
[2019-03-13] MEDS: OXYCODONE HCL 5MG TABLET PO SCH ×3 (08:58→17:52)
[2019-03-13 12:00] VITALS: BP 137/60
[2019-03-13] MEDS: HYDROCODONE/ACETAMINOPHEN 10/325MG TABLET PO SCH (12:04)
[2019-03-13 16:00] VITALS: BP 121/53
[2019-03-13] MEDS: SODIUM CHLORIDE 0.45% 1,000 ML IV SCH (16:49)
[2019-03-13] MEDS: ENOXAPARIN 30MG/0.3ML SYR SUBCUT SCH (17:51)
[2019-03-13 20:00] VITALS: BP 143/80
[2019-03-13] MEDS: FAMOTIDINE 20MG TABLET PO SCH (20:52)
[2019-03-14] VITALS: BP 123/59
[2019-03-14] MEDS: HYDROCODONE/ACETAMINOPHEN 10/325MG TABLET PO PRN ×2 (03:26→18:26)
[2019-03-14 04:00] VITALS: BP 128/57
[2019-03-14] MEDS: SODIUM CHLORIDE 0.45% 1,000 ML IV SCH ×2 (05:07→18:28)
[2019-03-14] MEDS: SODIUM CHLORIDE 0.9% INJ 3ML FLUSH IVF SCH ×3 (05:14→21:08)
[2019-03-14 06:53] LABS: BASOPHILS % 0.3 % (0.0-2.0); HEMATOCRIT. 27.6 % (42.0-52.0); HEMOGLOBIN. 9.1 g/dL (14.0-18.0); LYMPHOCYTES % 14.5 % (20.0-50.0); MEAN CORPUSCULAR VOLUME 90.7 fL (80.0-94.0); MEAN PLATELET VOLUME 9.7 fl (7.4-10.4); MONOCYTES % 13.5 % (2.0-8.0); NEUTROPHILS % 70.7 % (40.0-76.0); PLATELET 167 x1000/uL (130-400); RED BLOOD CELL COUNT 3.04 mill/uL (4.7-6.1); RED CELL DISTRIBUTION WIDTH 13.4 % (11.6-14.6)
[2019-03-14 07:02] LABS: CHLORIDE 103 mEq/L (98-107)
[2019-03-14 07:19] LABS: PHOSPHORUS 4.3 mg/dL (2.5-4.9)
[2019-03-14] MEDS: BLOOD SUGAR DIAGNOSTIC STRIP TEST SCH ×4 (07:40→21:08)
[2019-03-14 08:00] VITALS: BP 121/66
[2019-03-14] MEDS: INSULIN LISPRO 100 UNITS/ML SUBCUT SCH ×4 (08:10→21:00)
[2019-03-14] MEDS: DUTASTERIDE 0.5MG CAPSULE PO SCH (09:28)
[2019-03-14] MEDS: AMLODIPINE 5MG TABLET PO SCH ×2 (09:28→21:07)
[2019-03-14] MEDS: BENAZEPRIL 10MG TABLET PO SCH ×2 (09:28→21:07)
[2019-03-14] MEDS: OXYCODONE HCL 5MG TABLET PO SCH ×3 (09:29→17:12)
[2019-03-14 12:00] VITALS: BP 122/56
[2019-03-14] MEDS: HYDROCODONE/ACETAMINOPHEN 10/325MG TABLET PO SCH (12:01)
[2019-03-14 16:00] VITALS: BP 147/65
[2019-03-14] MEDS: ENOXAPARIN 30MG/0.3ML SYR SUBCUT SCH (18:24)
[2019-03-14 20:00] VITALS: BP 165/72
[2019-03-14] MEDS: FAMOTIDINE 20MG TABLET PO SCH (21:07)
[2019-03-15] VITALS: BP 139/64
[2019-03-15 04:00] VITALS: BP 142/69
[2019-03-15] MEDS: SODIUM CHLORIDE 0.9% INJ 3ML FLUSH IVF SCH ×3 (05:19→21:19)
[2019-03-15] MEDS: SODIUM CHLORIDE 0.45% 1,000 ML IV SCH ×2 (05:19→18:15)
[2019-03-15 06:45] LABS: MEAN CORPUSCULAR VOLUME 89.8 fL (80.0-94.0); MEAN PLATELET VOLUME 8.9 fl (7.4-10.4); PLATELET 206 x1000/uL (130-400); RED BLOOD CELL COUNT 3.34 mill/uL (4.7-6.1); RED CELL DISTRIBUTION WIDTH 13.3 % (11.6-14.6)
[2019-03-15 08:00] VITALS: BP 137/69
[2019-03-15] MEDS: INSULIN LISPRO 100 UNITS/ML SUBCUT SCH ×4 (08:10→21:00)
[2019-03-15] MEDS: BLOOD SUGAR DIAGNOSTIC STRIP TEST SCH ×4 (08:25→21:12)
[2019-03-15 10:10] LABS: PLATELET ESTIMATE NORMAL
[2019-03-15] MEDS: BENAZEPRIL 10MG TABLET PO SCH ×2 (10:24→21:08)
[2019-03-15] MEDS: AMLODIPINE 5MG TABLET PO SCH ×2 (10:24→21:07)
[2019-03-15] MEDS: OXYCODONE HCL 5MG TABLET PO SCH ×3 (10:24→18:01)
[2019-03-15] MEDS: DUTASTERIDE 0.5MG CAPSULE PO SCH (10:24)
[2019-03-15 12:37] VITALS: BP 131/67
[2019-03-15] MEDS ORDERED: SODIUM POLYSTYRENE SULFONATE 15 G/60 ML BOT PO SCH (13:30)
[2019-03-15 16:00] VITALS: BP 122/55
[2019-03-15] MEDS: ENOXAPARIN 30MG/0.3ML SYR SUBCUT SCH (18:00)
[2019-03-15 20:00] VITALS: BP 128/67
[2019-03-15] MEDS: FAMOTIDINE 20MG TABLET PO SCH (21:07)
[2019-03-16] VITALS: BP 126/58
[2019-03-16 04:00] VITALS: BP 143/65
[2019-03-16] MEDS: SODIUM CHLORIDE 0.9% INJ 3ML FLUSH IVF SCH ×3 (06:29→21:00)
[2019-03-16 06:53] LABS: BASOPHILS % 0.3 % (0.0-2.0); EOSINOPHILS % 0.7 % (0.0-5.0); HEMATOCRIT. 31.8 % (42.0-52.0); HEMOGLOBIN. 10.5 g/dL (14.0-18.0); LYMPHOCYTES % 13.5 % (20.0-50.0); MEAN CORPUSCULAR HEMOGLOBIN 29.8 pg (28.0-32.0); MEAN CORPUSCULAR VOLUME 89.9 fL (80.0-94.0); MEAN PLATELET VOLUME 9.2 fl (7.4-10.4); MONOCYTES % 12.4 % (2.0-8.0); NEUTROPHILS % 73.1 % (40.0-76.0); PLATELET 215 x1000/uL (130-400); RED BLOOD CELL COUNT 3.54 mill/uL (4.7-6.1); RED CELL DISTRIBUTION WIDTH 13.3 % (11.6-14.6)
[2019-03-16 08:00] VITALS: BP 141/76
[2019-03-16] MEDS: BLOOD SUGAR DIAGNOSTIC STRIP TEST SCH (08:09)
[2019-03-16] MEDS: INSULIN LISPRO 100 UNITS/ML SUBCUT SCH (08:09)
[2019-03-16] MEDS: AMLODIPINE 5MG TABLET PO SCH ×2 (08:37→20:58)
[2019-03-16] MEDS: BENAZEPRIL 10MG TABLET PO SCH ×2 (08:37→20:57)
[2019-03-16] MEDS: DUTASTERIDE 0.5MG CAPSULE PO SCH (08:37)
[2019-03-16] MEDS: HYDROCODONE/ACETAMINOPHEN 10/325MG TABLET PO SCH (08:38)
[2019-03-16] MEDS: OXYCODONE HCL 5MG TABLET PO SCH ×3 (08:50→23:01)
[2019-03-16 12:17] VITALS: BP 107/41
[2019-03-16 16:00] VITALS: BP 122/52
[2019-03-16] MEDS: LACTULOSE 20G/30ML UDC PO SCH ×2 (18:58→20:59)
[2019-03-16] MEDS: ENOXAPARIN 30MG/0.3ML SYR SUBCUT SCH (18:59)
[2019-03-16] MEDS: SODIUM CHLORIDE 0.9% 1,000 ML IV SCH (19:12)
[2019-03-16 20:00] VITALS: BP 140/64
[2019-03-16] MEDS: FAMOTIDINE 20MG TABLET PO SCH (20:58)
[2019-03-16] MEDS ORDERED: OXYCODONE HCL 5MG TABLET PO PRN (22:30)
[2019-03-17] VITALS: BP 123/60
[2019-03-17 03:34] LABS: SODIUM URINE RANDOM 74 mEq/L
[2019-03-17 04:00] VITALS: BP 128/65
[2019-03-17] MEDS: SODIUM CHLORIDE 0.9% INJ 3ML FLUSH IVF SCH ×2 (06:35→20:58)
[2019-03-17 08:00] VITALS: BP 134/62
[2019-03-17] MEDS: LACTULOSE 20G/30ML UDC PO SCH ×2 (08:21→13:10)
[2019-03-17] MEDS: AMLODIPINE 5MG TABLET PO SCH ×2 (08:21→20:57)
[2019-03-17] MEDS: BENAZEPRIL 10MG TABLET PO SCH ×2 (08:21→20:57)
[2019-03-17] MEDS: DUTASTERIDE 0.5MG CAPSULE PO SCH (08:21)
[2019-03-17] MEDS: HYDROCODONE/ACETAMINOPHEN 10/325MG TABLET PO SCH (08:22)
[2019-03-17] MEDS: OXYCODONE HCL 5MG TABLET PO SCH ×3 (08:23→18:46)
[2019-03-17 12:00] VITALS: BP 128/58
[2019-03-17] MEDS: SODIUM CHLORIDE 0.9% 1,000 ML IV SCH (13:11)
[2019-03-17 16:00] VITALS: BP 134/66
[2019-03-17] MEDS: ENOXAPARIN 30MG/0.3ML SYR SUBCUT SCH (18:48)
[2019-03-17 20:00] VITALS: BP 137/65
[2019-03-17] MEDS: FAMOTIDINE 20MG TABLET PO SCH (20:57)
[2019-03-18] VITALS: BP 143/67
[2019-03-18 04:00] VITALS: BP 136/70
[2019-03-18] MEDS: SODIUM CHLORIDE 0.9% INJ 3ML FLUSH IVF SCH ×2 (05:39→14:00)
[2019-03-18 08:00] VITALS: BP 144/59
[2019-03-18] MEDS: DUTASTERIDE 0.5MG CAPSULE PO SCH (08:50)
[2019-03-18] MEDS: OXYCODONE HCL 5MG TABLET PO SCH ×3 (08:51→17:22)
[2019-03-18] MEDS: HYDROCODONE/ACETAMINOPHEN 10/325MG TABLET PO SCH (08:51)
[2019-03-18] MEDS: BENAZEPRIL 10MG TABLET PO SCH ×2 (08:52→21:07)
[2019-03-18] MEDS: AMLODIPINE 5MG TABLET PO SCH ×2 (08:52→21:08)
[2019-03-18 12:00] VITALS: BP 131/48
[2019-03-18] MEDS: ENOXAPARIN 30MG/0.3ML SYR SUBCUT SCH (17:23)
[2019-03-18 18:15] VITALS: BP 125/59
[2019-03-18 20:00] VITALS: BP 117/49
[2019-03-18] MEDS: FAMOTIDINE 20MG TABLET PO SCH (21:07)
[2019-03-19] VITALS: BP 138/44
[2019-03-19 04:00] VITALS: BP 118/55
[2019-03-19 08:00] VITALS: BP 118/60
[2019-03-19] MEDS: DUTASTERIDE 0.5MG CAPSULE PO SCH (08:44)
[2019-03-19] MEDS: OXYCODONE HCL 5MG TABLET PO SCH ×3 (08:44→17:17)
[2019-03-19] MEDS: AMLODIPINE 5MG TABLET PO SCH ×2 (08:44→20:08)
[2019-03-19] MEDS: BENAZEPRIL 10MG TABLET PO SCH ×2 (11:16→20:09)
[2019-03-19 12:00] VITALS: BP 112/54
[2019-03-19 16:00] VITALS: BP 126/59
[2019-03-19] MEDS ORDERED: HYDRALAZINE 10 MG in SODIUM CHLORIDE 0.9% 49.5 ML IV PRN (17:00)
[2019-03-19] MEDS: ENOXAPARIN 30MG/0.3ML SYR SUBCUT SCH (17:17)
[2019-03-19 20:00] VITALS: BP 132/61
[2019-03-19] MEDS: FAMOTIDINE 20MG TABLET PO SCH (20:09)
[2019-03-20] VITALS: BP 139/62
[2019-03-20 04:00] VITALS: BP 127/64
[2019-03-20 08:00] VITALS: BP 128/63
[2019-03-20] MEDS: BENAZEPRIL 10MG TABLET PO SCH ×2 (08:37→20:35)
[2019-03-20] MEDS: HYDROCODONE/ACETAMINOPHEN 5/325MG TABLET PO SCH (08:37)
[2019-03-20] MEDS: DUTASTERIDE 0.5MG CAPSULE PO SCH (08:37)
[2019-03-20] MEDS: AMLODIPINE 5MG TABLET PO SCH ×2 (08:37→20:35)
[2019-03-20] MEDS: OXYCODONE HCL 5MG TABLET PO SCH (10:18)
[2019-03-20 12:00] VITALS: BP 120/55
[2019-03-20] MEDS ORDERED: OXYCODONE HCL 5MG TABLET PO PRN (14:00)
[2019-03-20] MEDS: SODIUM CHLORIDE 0.9% INJ 3ML FLUSH IVF SCH ×2 (14:00→14:08)
[2019-03-20 16:00] VITALS: BP 129/56
[2019-03-20] MEDS: ENOXAPARIN 30MG/0.3ML SYR SUBCUT SCH (17:51)
[2019-03-20] MEDS: FAMOTIDINE 20MG TABLET PO SCH (20:35)
[2019-03-21 07:13] LABS: BASOPHILS % 0.6 % (0.0-2.0); EOSINOPHILS % 1.2 % (0.0-5.0); HEMATOCRIT. 31.2 % (42.0-52.0); HEMOGLOBIN. 10.3 g/dL (14.0-18.0); LYMPHOCYTES % 22.1 % (20.0-50.0); MEAN CORPUSCULAR HEMOGLOBIN 29.4 pg (28.0-32.0); MEAN PLATELET VOLUME 8.2 fl (7.4-10.4); MONOCYTES % 13.4 % (2.0-8.0); NEUTROPHILS % 62.7 % (40.0-76.0); PLATELET 283 x1000/uL (130-400); RED BLOOD CELL COUNT 3.51 mill/uL (4.7-6.1); RED CELL DISTRIBUTION WIDTH 12.9 % (11.6-14.6)
[2019-03-21 08:00] VITALS: BP 125/62
[2019-03-21] MEDS ORDERED: ALBUTEROL (0.083%) 2.5MG/3ML NEB HHN SCH (08:30)
[2019-03-21] MEDS: DUTASTERIDE 0.5MG CAPSULE PO SCH (08:42)
[2019-03-21] MEDS: AMLODIPINE 5MG TABLET PO SCH (08:42)
[2019-03-21] MEDS: HYDROCODONE/ACETAMINOPHEN 5/325MG TABLET PO SCH (08:42)
[2019-03-21] MEDS: BENAZEPRIL 10MG TABLET PO SCH (08:42)
[2019-03-21 12:00] VITALS: BP 117/52
[2019-03-21] MEDS ORDERED: LIDOCAINE 5% PATCH TOP SCH (14:00)
[2019-03-21 16:00] VITALS: BP 114/44
[2019-03-21 16:17] VITALS: BP 114/44
[2019-03-21] MEDS: ENOXAPARIN 30MG/0.3ML SYR SUBCUT SCH (17:04)
== END 2019-03-21 18:45 | disposition short-term general hospital (02) | DRG 542 ==
LOC: ER 06:29 → 7WST 08:16 → ENRESERV 15:20 → 6EST 03-18 14:54
PROVIDERS: ADMIT Internal Medicine; ATTEND Internal Medicine
DX: C79.51 Secondary malignant neoplasm of bone (principal); J18.9 Pneumonia, unspecified organism; M84.459A Pathological fracture, hip, unspecified, initial encounter for fracture; C64.9 Malignant neoplasm of unspecified kidney, except renal pelvis; J44.0 Chronic obstructive pulmonary disease with (acute) lower respiratory infection; N18.4 Chronic kidney disease, stage 4 (severe); I82.411 Acute embolism and thrombosis of right femoral vein; N17.9 Acute kidney failure, unspecified; D64.9 Anemia, unspecified; E11.22 Type 2 diabetes mellitus with diabetic chronic kidney disease; E78.5 Hyperlipidemia, unspecified; F17.210 Nicotine dependence, cigarettes, uncomplicated; G62.9 Polyneuropathy, unspecified; Z96.641 Presence of right artificial hip joint; E11.51 Type 2 diabetes mellitus with diabetic peripheral angiopathy without gangrene; E78.00 Pure hypercholesterolemia, unspecified; E86.9 Volume depletion, unspecified; M19.90 Unspecified osteoarthritis, unspecified site; I12.9 Hypertensive chronic kidney disease with stage 1 through stage 4 chronic kidney disease, or unspecified chronic kidney disease; R26.9 Unspecified abnormalities of gait and mobility; I25.10 Atherosclerotic heart disease of native coronary artery without angina pectoris; Z85.46 Personal history of malignant neoplasm of prostate; Z86.711 Personal history of pulmonary embolism; Z86.718 Personal history of other venous thrombosis and embolism; Z86.73 Personal history of transient ischemic attack (TIA), and cerebral infarction without residual deficits; Z95.828 Presence of other vascular implants and grafts; Z79.84 Long term (current) use of oral hypoglycemic drugs; Z92.3 Personal history of irradiation
CPT/HCPCS: 36415; 71045; 72192; 73502; 73560; 73590; 73620; 78306; 80048; 82962; 83615; 83735; 83935; 83970; 84100; 84153; 84300; 84550; 90686; 93005; 93970; 96374; 96376; 97110; 97162; 97166; 97530; 99291; A6261; A9503; C1893; J0360; J1650; J1815; J2270; J7030; J7620; G0103